=== PATIENT | female | born 1955 | race Hispanic/Latino ===

== ENCOUNTER 2018-11-16 16:49 | Inpatient (IN) | payer MEDICARE ==
[2018-11-16] MEDS ORDERED: GEODON IM PRN (17:31)
[2018-11-16] MEDS: DESYREL PO PRN (23:45)
--- NOTE | 2018-11-17 11:09 | Consultation ---
History of Present Illness - Reason for Consult Consult date: 11/17/18 medical mx Requesting physician: MITESH RIVERO - History of Present Illness The patient is a 63yo disabled female with history of Bipolar dx, Schizophrenia and multiple medical problems including Asthma, HLD and HTN presented with distressing auditory hallucinations, severely depressed mood and suicidal thoughts with plan to overdose and cut her wrist. She is now admitted t o [facility]. Hospitalist service requested to evaluated the patient for any medical needs. patient in my interview denies any n/v/SOB/headache. But c/o burning intermittent epigastric pain which she contributes to her GERD. She is tolerating diet well and has no other complaints. Past History Past Medical History: GERD, hypertension, hyperlipidemia, hypothyroidism, other (osteoarthritis, asthma) Past Surgical History: cholecystectomy, total knee replacement (x2 ), Other (left ankle and left femir surgery) Social history: , lives with family, other (has h/o 2nd hand tobacco smoking). denies: smoking, alcohol abuse, IV drug use Family history: diabetes, hypertension Medications and Allergies Allergies Allergy/AdvReac Type Severity Reaction Status Date / Time fluphenazine [From Prolixin] AdvReac Rash Verified 11/16/18 17:06 haloperidol [From Haldol] AdvReac Swelling Verified 11/16/18 17:05 Iodinated Contrast- Oral and AdvReac Rash Verified 11/16/18 17:28 IV Dye Sulfa (Sulfonamide AdvReac Rash Verified 11/16/18 17:13 Antibiotics) sulfamethoxazole AdvReac WELTS Verified 11/16/18 17:17 Home Medications Medication Instructions Recorded Confirmed Last Taken Type Aspirin 325 mg PO QDAY 11/17/18 11/17/18 Unknown History Esomeprazole Magnesium [NexIUM] 40 mg PO QDAY 11/17/18 11/17/18 Unknown History Levothyroxine [Synthroid] 225 mcg PO QAM 11/17/18 11/17/18 Unknown History Montelukast [Singulair] 10 mg PO QPM 11/17/18 11/17/18 Unknown History Nystatin 1 applic TP BID 11/17/18 11/17/18 Unknown History OLANzapine [Zyprexa] 20 mg PO HS 11/17/18 11/17/18 Unknown History Pregabalin [Lyrica] 75 mg PO BID 11/17/18 11/17/18 Unknown History Simvastatin 40 mg PO QDAY 11/17/18 11/17/18 Unknown History Sucralfate [Carafate] 1 gm PO ACHS 11/17/18 11/17/18 Unknown History rOPINIRole [Requip] 1 mg PO QHS 11/17/18 11/17/18 Unknown History Active Meds: Active Medications Trazodone HCl (Desyrel) 50 mg PO QHS PRN PRN Reason: Insomnia Last Admin: 11/16/18 23:45 Dose: 50 mg Documented by: Ziprasidone (Geodon) 20 mg IM Q12H PRN PRN Reason: Agitation Review of Systems Constitutional: fatigue, no weight loss, no weight gain Ears, nose, mouth and throat: no ear pain, no decreased hearing, no nasal congestion, no sinus pressure, no bleeding gums, no dysphagia, no sore throat, no voice changes, no headache, no vertigo Breasts: no change in shape, no skin changes Cardiovascular: no chest pain, no palpitations, no lightheadedness, no shortness of breath Respiratory: no cough, no congestion, no wheezing Gastrointestinal: no abdominal pain, no nausea, no vomiting, no diarrhea Genitourinary Female: no flank pain, no urinary frequency Menstruation: postmenopausal Rectal: no pain, no bleeding Musculoskeletal: no neck pain, no low back pain Integumentary: no rash, no pruritis, no redness Neurological: no paralysis, no numbness, no tingling Psychiatric: sleep disturbances, change in appetite, hallucinations Endocrine: no cold intolerance, no heat intolerance Hematologic/Lymphatic: no easy bruising, no easy bleeding Allergic/Immunologic: no urticaria Exam - Constitutional Vitals: Temp Pulse Resp BP Pulse Ox 97.7 F 68 18 136/55 98 11/16/18 23:07 11/16/18 23:07 11/16/18 23:07 11/16/18 23:07 11/16/18 23:07 General appearance: Present: no acute distress, obese - EENT Eyes: Present: PERRL ENT: hearing intact, clear oral mucosa - Neck Neck: Present: supple, normal ROM - Respiratory Respiratory effort: normal Respiratory: bilateral: CTA - Cardiovascular Heart Sounds: Present: S1 & S2. Absent: rub, click - Extremities Extremities: pulses symmetrical, No edema Peripheral Pulses: within normal limits - Abdominal General gastrointestinal: Present: soft, non-tender, non-distended, normal bowel sounds - Integumentary Integumentary: Present: clear, warm, dry - Musculoskeletal Musculoskeletal: gait normal, strength equal bilaterally - Psychiatric Psychiatric: memory intact, cooperative, no agitated - Neurologic Neurologic: CNII-XII intact, moves all extremities Results - Labs CBC & Chem 7: 11/17/18 11:43 11/17/18 11:28 Labs: Abnormal lab results 11/16/18 Range/Units 21:54 POC Glucose 125 H (70-105) Assessment and Plan Bipolar disorder current episode depressed (Acute) Paranoid schizophrenia (Acute) - Mx per primary Chronic medical conditions: Asthma, w/o exacerbation hypothyroidism Osteoarthitis with rediculopathy HTN, stable HLD GERD Morbid obesity - cont home meds - patient appears medically stable - no acute intervention necessary - call us back any question or concern - please provide dietary and age appropriate exercise recommendation on discharge
--- NOTE | 2018-11-17 11:59 | History and Physical Report ---
GP History & Physical - History of Present Illness Date of admission: 11/16/18 Date of Examination: 11/17/18 Reason for Admission: Danger to self, Psychopathology interference, Severe anxiety/depression Chief Complaint: I am having suicidal thoughts History of Present Illness: The patient is a 63yo disabled female with history of Bipolar dx, Schizophrenia and multiple medical problems including Asthma, HLD and HTN. She presents with distressing auditory hallucinations, severely depressed mood and suicidal thoughts with plan to overdose and cut her wrist. In my interview with the patient, she reports that she has been feeling progressively more depressed in the last month and has been entertaining suicidal thoughts over the last one or so weeks. She is not able to identify any stressor but indicates that she hears voices that torment her and tell her to kill herself. She states that the voices also make derogatory comments towards her. She denies being paranoid or homicidal. She sleeps poorly at night and her appetite is fair. She reports being compliant with her medications and denies side effects. She denies abusing substances including alcohol Legal Status: Voluntary Patient Problems: Current Active Problems Bipolar disorder current episode depressed (Acute) Paranoid schizophrenia (Acute) Reaction to Hospitalization: Accepting Substance History - Substance History Drug Use: none Hx Tobacco Use: No Alcohol Use: No Past psychiatric history - Past Medical History Past Medical History: hypertension, hyperlipidemia, hypothyroidism, other (Asthma) - past Psychiatric treatment and history Psych: Bipolar, Schizophrenia - Social History Social history: lives with family (daughter, completed 10th grade ed, disabled, , no legal problems and access to guns.) Review of Systems All systems: negative Psychiatric: insomnia, suicidal ideation, hallucinations, depression Results - Results Labs/Vitals: Laboratory Last Values POC Glucose 125 (70-105) H 11/16/18 21:54 Last Vital Signs Temp 97.3 F L 11/17/18 09:31 Pulse 81 11/17/18 09:31 Resp 18 11/16/18 23:07 BP 129/64 11/17/18 09:31 Pulse Ox 99 11/17/18 09:31 Physical Examination - Constitutional Vitals: Vital Signs Temp Pulse Resp BP Pulse Ox 97.3 F L 81 18 129/64 99 11/17/18 09:31 11/17/18 09:31 11/16/18 23:07 11/17/18 09:31 11/17/18 09:31 Temperature -Last 24 Hours Temperature 97.3 F Temperature 97.7 F Temperature 97.7 F General appearance: Present: no acute distress, obese, disheveled - EENT Eyes: Present: EOM intact ENT: hearing intact, clear oral mucosa - Neck Neck: Present: supple, normal ROM - Respiratory Respiratory effort: normal Mental Status Exam - Vital signs Last Vital Signs Temp 97.3 F L 11/17/18 09:31 Pulse 81 11/17/18 09:31 Resp 18 11/16/18 23:07 BP 129/64 11/17/18 09:31 Pulse Ox 99 11/17/18 09:31 - Exam Orientation: time, place, person Mood: congruent with affect Thought Process: Intact Perceptions: command, hallucinations Speech: normal rate and pattern Concentration: focused Motor activity: lethargic Level of consciousness: alert Memory: Intact Sleep Symptoms: Insomnia Interaction: cooperative, pleasant Assessment and Plan - Psychiatric problem (1) Paranoid schizophrenia Current Visit: Yes Status: Acute (2) Bipolar disorder current episode depressed Current Visit: Yes Status: Acute plan to address problem: Patient will be admitted for inpatient psychiatric evaluation, medication adjustment and close monitoring The patient's behavior, mood, sleep and appetite will be closely monitored. Patient will be enrolled in individual and group therapeutic sessions and encouraged to attend. Patient will be provided with a safe and structured environment. Patient's physical health needs will be addressed by the Hospitalist. Social Assessment will be completed and the Cna Per Diem will work with pat ient and family to ensure a suitable and safe disposition Medication adjustment will be made as clinically indicated The patient agreed on the treatment plan, understood the risk, benefit, alternative treatment, potential consequence of no treatment, and gave informed consent. Physician Certification - Certification Statement Physician Certification Statement: This is an acknowledgement statement that MAYTE STAPLES is a 63 year old F who requires inpatient psychiatric admission for treatment which could reasonably be expected to improve the patient's condition for depression and psychosis Estimated period of time patient will need to remain in the hospital: 7 days Plan for post-hospital care: Outpatient care
[2018-11-17 12:03] LABS: Basophils % (Auto) 0.3 % (0.0-1.8); Eosinophils # (Auto) 0.3 K/mm3 (0.0-0.4); Eosinophils % (Auto) 4.4 % (0.0-4.3); Hematocrit 37.7 % (30.3-42.9); Hemoglobin 12.2 gm/dl (10.1-14.3); Lymphocytes # (Auto) 1.6 K/mm3 (1.2-5.4); Mean Corpuscular HGB Conc 32 % (30-34); Mean Corpuscular Volume 83 fl (79-97); Monocytes # (Auto) 0.9 K/mm3 (0.0-0.8); Monocytes % (Auto) 13.1 % (0.0-7.3); Platelet Count 235 K/mm3 (140-440); Red Blood Count 4.54 M/mm3 (3.65-5.03); Red Cell Distribution Width 17.5 % (13.2-15.2)
[2018-11-17 12:04] LABS: Alanine Aminotransferase 5 units/L (7-56); Albumin 3.7 g/dL (3.9-5); BUN/Creatinine Ratio 20; Blood Urea Nitrogen 12 mg/dL (7-17); Calcium 8.6 mg/dL (8.4-10.2); Hemolysis Index 3; LDL Cholesterol,Direct 45 mg/dL (50-130)
[2018-11-17 12:26] LABS: Chol/HDL Ratio 2.43 %; HDL Cholesterol 44 mg/dL (40-59)
[2018-11-17] MEDS: CARAFATE PO SCH ×2 (16:25→22:19)
[2018-11-17] MEDS: SINGULAIR PO SCH (17:02)
[2018-11-17] MEDS ORDERED: NYSTATIN TP SCH (22:00)
[2018-11-17] MEDS: LYRICA PO SCH (22:19)
[2018-11-17] MEDS: CYMBALTA PO SCH (22:19)
[2018-11-17] MEDS: REQUIP PO SCH (22:19)
[2018-11-17] MEDS: PRAVACHOL PO SCH (22:20)
[2018-11-17] MEDS: MYCOSTATIN TP SCH (22:22)
[2018-11-18] MEDS: SYNTHROID PO SCH ×2 (06:32)
[2018-11-18] MEDS: CARAFATE PO SCH ×4 (08:55→21:18)
[2018-11-18] MEDS ORDERED: NON-FORMULARY (Esomeprazole Magnesium [Nexium] 40 MG) PO SCH (10:00)
[2018-11-18] MEDS ORDERED: NON-FORMULARY (Aspirin 325 MG) PO SCH (10:00)
[2018-11-18] MEDS ORDERED: NON-FORMULARY (Simvastatin 40 MG) PO SCH (10:00)
[2018-11-18] MEDS: CYMBALTA PO SCH ×2 (11:10→21:18)
[2018-11-18] MEDS: ASPIRIN PO SCH (11:10)
[2018-11-18] MEDS: PROTONIX PO SCH (11:10)
[2018-11-18] MEDS: LYRICA PO SCH ×2 (11:10→21:18)
[2018-11-18] MEDS: MYCOSTATIN TP SCH ×2 (11:10→21:18)
[2018-11-18] MEDS: SINGULAIR PO SCH (17:07)
[2018-11-18] MEDS: REQUIP PO SCH (21:18)
[2018-11-18] MEDS: PRAVACHOL PO SCH (21:18)
[2018-11-18] MEDS: DESYREL PO PRN (21:58)
[2018-11-18] MEDS: NYSTOP TP SCH (21:59)
[2018-11-19] MEDS: SYNTHROID PO SCH ×2 (06:31)
[2018-11-19] MEDS: CARAFATE PO SCH ×4 (06:32→21:18)
[2018-11-19] MEDS: NYSTOP TP SCH ×2 (09:46→21:47)
[2018-11-19] MEDS: PROTONIX PO SCH (09:47)
[2018-11-19] MEDS: CYMBALTA PO SCH ×2 (09:47→21:17)
[2018-11-19] MEDS: ASPIRIN PO SCH (09:47)
[2018-11-19] MEDS: LYRICA PO SCH ×2 (09:47→21:15)
[2018-11-19] MEDS: SINGULAIR PO SCH (18:11)
[2018-11-19] MEDS: REQUIP PO SCH (18:11)
[2018-11-19] MEDS: PRAVACHOL PO SCH (21:17)
[2018-11-19] MEDS: DESYREL PO PRN (21:46)
[2018-11-20] MEDS: SYNTHROID PO SCH ×2 (05:51→05:52)
[2018-11-20] MEDS: ASPIRIN PO SCH (09:37)
[2018-11-20] MEDS: PROTONIX PO SCH (09:38)
[2018-11-20] MEDS: CYMBALTA PO SCH ×2 (09:38→21:54)
[2018-11-20] MEDS: NYSTOP TP SCH ×2 (09:38→21:50)
[2018-11-20] MEDS: LYRICA PO SCH ×2 (09:38→21:54)
[2018-11-20] MEDS: CARAFATE PO SCH ×4 (09:40→21:54)
[2018-11-20] MEDS: PROVENTIL IH PRN (16:25)
[2018-11-20] MEDS: REQUIP PO SCH (17:34)
[2018-11-20] MEDS: SINGULAIR PO SCH (17:34)
[2018-11-20] MEDS: PRAVACHOL PO SCH (21:54)
--- NOTE | 2018-11-20 22:04 | Progress Note ---
Subjective Date of service: 11/18/18 Principal diagnosis: Bipolar depression, Parnoid Schizophrenia Subjective Comment: Patient reports feeling depressed, suicidal and she continues to experience auditory hallucinations with derogatory comments towards her. She is compliant with meds and denies side effect. Objective - Criteria for Continued Treatment Criteria for Continued Treatment: Improving Level of Functioning, Reducing Isolative Behaviors, Improving Treatment / Medication Compliance, Stablizing Level of Functioning, Improving Emotional/Socia - Mental Status Mental Status: Alert - Objective Observation Participation Level: Minimal Assessment and Plan - Patient Problems (1) Paranoid schizophrenia Current Visit: Yes Status: Acute (2) Bipolar disorder current episode depressed Current Visit: Yes Status: Acute Plan to address problem: Patient will be admitted for inpatient psychiatric evaluation, medication adjustment and close monitoring The patient's behavior, mood, sleep and appetite will be closely monitored. Patient will be enrolled in individual and group therapeutic sessions and encouraged to attend. Patient will be provided with a safe and structured environment. Patient's physical health needs will be addressed by the Hospitalist. Social Assessment will be completed and the Coal Shoveler will work with patient and family to ensure a suitable and safe disposition Medication adjustment will be made as clinically indicated. Will increase Duloxetine from 30mg qd to 30mg bid for depression The patient agreed on the treatment plan, understood the risk, benefit, alternative treatment, potential consequence of no treatment, and gave informed consent.
--- NOTE | 2018-11-20 22:09 | Progress Note ---
Subjective Date of service: 11/19/18 Principal diagnosis: Bipolar depression, Parnoid Schizophrenia Subjective Comment: Patient reports improving mood but reports that she continues to experience auditory hallucinations with derogatory comments towards her. She is compliant with meds and denies side effect. Objective - Criteria for Continued Treatment Criteria for Continued Treatment: Improving Level of Functioning, Reducing Isolative Behaviors, Improving Treatment / Medication Compliance, Stablizing Level of Functioning, Improving Emotional/Socia - Mental Status Mental Status: Alert - Objective Observation Participation Level: Full Assessment and Plan - Patient Problems (1) Paranoid schizophrenia Current Visit: Yes Status: Acute (2) Bipolar disorder current episode depressed Current Visit: Yes Status: Acute Plan to address problem: Patient will be admitted for inpatient psychiatric evaluation, medication adjustment and close monitoring The patient's behavior, mood, sleep and appetite will be closely monitored. Patient will be enrolled in individual and group therapeutic sessions and encouraged to attend. Patient will be provided with a safe and structured environment. Patient's physical health needs will be addressed by the Hospitalist. Social Assessment will be completed and the Pharmaceutical Detailer will work with patient and family to ensure a suitable and safe disposition Medication adjustment will be made as clinically indicated. Continue Olanzapine 20mg qhs and Duloxetine 30mg bid for depression The patient agreed on the treatment plan, understood the risk, benefit, alternative treatment, potential consequence of no treatment, and gave informed consent.
--- NOTE | 2018-11-20 22:11 | Progress Note ---
Subjective Date of service: 11/20/18 Principal diagnosis: Bipolar depression, Parnoid Schizophrenia Subjective Comment: Patient reports improving mood but continues to experience auditory hallucinations with derogatory comments towards her. She is compliant with meds and denies side effect. Objective - Criteria for Continued Treatment Criteria for Continued Treatment: Improving Level of Functioning, Reducing Isolative Behaviors, Improving Treatment / Medication Compliance, Stablizing Level of Functioning, Improving Emotional/Socia - Mental Status Mental Status: Alert - Objective Observation Participation Level: Full Assessment and Plan - Patient Problems (1) Paranoid schizophrenia Current Visit: Yes Status: Acute (2) Bipolar disorder current episode depressed Current Visit: Yes Status: Acute Plan to address problem: Patient will be admitted for inpatient psychiatric evaluation, medication adjustment and close monitoring The patient's behavior, mood, sleep and appetite will be closely monitored. Patient will be enrolled in individual and group therapeutic sessions and encouraged to attend. Patient will be provided with a safe and structured environment. Patient's physical health needs will be addressed by the Hospitalist. Social Assessment will be completed and the Tear Down Man will work with patient and family to ensure a suitable and safe disposition Medication adjustment will be made as clinically indicated. Continue Olanzapine 20mg qhs and Duloxetine 30mg bid for depression The patient agreed on the treatment plan, understood the risk, benefit, alternative treatment, potential consequence of no treatment, and gave informed consent.
[2018-11-21] MEDS: SYNTHROID PO SCH ×2 (05:49)
[2018-11-21] MEDS: CARAFATE PO SCH ×4 (08:16→21:18)
--- NOTE | 2018-11-21 08:44 | Progress Note ---
Subjective Date of service: 11/21/18 Principal diagnosis: Bipolar depression, Parnoid Schizophrenia Subjective Comment: Patient reports improved mood, denies SI/HI/AVH/Paranoia. She is compliant with meds and denies side effect. Will plan to discharge patient in am if she continues to do well. Objective - Criteria for Continued Treatment Criteria for Continued Treatment: Improving Level of Functioning, Stablizing Level of Functioning, Improving Emotional/Socia - Mental Status Mental Status: Alert - Objective Observation Participation Level: Full Assessment and Plan - Patient Problems (1) Paranoid schizophrenia Current Visit: Yes Status: Acute (2) Bipolar disorder current episode depressed Current Visit: Yes Status: Acute Plan to address problem: Patient will be admitted for inpatient psychiatric evaluation, medication adjustment and close monitoring The patient's behavior, mood, sleep and appetite will be closely monitored. Patient will be enrolled in individual and group therapeutic sessions and encouraged to attend. Patient will be provided with a safe and structured environment. Patient's physical health needs will be addressed by the Hospitalist. Social Assessment will be completed and the Lockstitch Tunnel Elastic Operator will work with patient and family to ensure a suitable and safe disposition Medication adjustment will be made as clinically indicated. Continue Olanzapine 20mg qhs and Duloxetine 30mg bid for depression The patient agreed on the treatment plan, understood the risk, benefit, alternative treatment, potential consequence of no treatment, and gave informed consent.
[2018-11-21] MEDS: ASPIRIN PO SCH (09:52)
[2018-11-21] MEDS: CYMBALTA PO SCH ×2 (09:52→21:19)
[2018-11-21] MEDS: NYSTOP TP SCH ×2 (09:53→21:19)
[2018-11-21] MEDS: PROTONIX PO SCH (09:53)
[2018-11-21] MEDS: LYRICA PO SCH ×2 (09:53→21:19)
[2018-11-21] MEDS: REQUIP PO SCH (17:08)
[2018-11-21] MEDS: SINGULAIR PO SCH (17:08)
[2018-11-21] MEDS: PRAVACHOL PO SCH (21:19)
[2018-11-21] MEDS: DESYREL PO PRN (21:20)
[2018-11-21] MEDS: PROVENTIL IH PRN (22:36)
[2018-11-22] MEDS: CARAFATE PO SCH ×2 (06:35→12:46)
[2018-11-22] MEDS: SYNTHROID PO SCH ×2 (06:35)
[2018-11-22] MEDS: PROVENTIL IH PRN (08:08)
[2018-11-22] MEDS: CYMBALTA PO SCH (10:14)
[2018-11-22] MEDS: LYRICA PO SCH (10:14)
[2018-11-22] MEDS: PROTONIX PO SCH (10:14)
[2018-11-22] MEDS: ASPIRIN PO SCH (10:14)
--- NOTE | 2018-11-22 12:06 | Discharge Summary ---
Providers - Providers Date of Admission: 11/16/18 17:22 Date of discharge: 11/22/18 Attending physician: MITESH RIVERO MD Primary care physician: MILK BOTTLING MACHINE OPERATOR Hospitalization Reason for admission: Auditory hallucinations, depressed mood and suicidal thoughts Condition: Good Hospital course: The patient was provided inpatient psychiatric treatment with safe and supportive environment, group therapy, individual counseling, psychiatric medication, medication adjustment, adverse effect monitor, medical evaluation, medical treatment, social service assessment, family/social support meeting, placement assessment and psycho-education. The patients mood, anxiety, thoughts, stress management skill, cognition, impulse/anger control, motivation, understanding of disease, compliance to treatment and appreciation on family/social support are improved and stabilized. At the time of discharge, the patient had no suicidal ideas, no homicidal ideas, no aggressive thoughts, no endangering behavior and no debilitating adverse effects. The patient agreed on the treatment plan, understood the risk, benefit, alternative treatment, po tential consequence of no treatment, and gave informed consent. The patient was advised to be compliant with medications, not to use drugs and not to drink alcohol. The patient understands that if suicidal ideas, homicidal ideas, or any endangering thoughts arise, the patient should immediately seek for emergent assistance including but not limited to crisis hot line and emergency room. Follow up with out-patient Psychiatrist and PCP within 14 - 21 days of discharge. Disposition: DC-01 TO HOME OR SELFCARE Allergies/Adverse Reactions: Allergies fluphenazine [From Prolixin] Adverse Reaction (Verified 11/16/18 17:06) Rash haloperidol [From Haldol] Adverse Reaction (Verified 11/16/18 17:05) Swelling TONGUE SWELLING. Iodinated Contrast- Oral and IV Dye Adverse Reaction (Verified 11/16/18 17:28) Rash Sulfa (Sulfonamide Antibiotics) Adverse Reaction (Verified 11/16/18 17:13) Rash sulfamethoxazole Adverse Reaction (Verified 11/16/18 17:17) NOLAN Vital Signs: Last Vital Signs Temp 97.6 F 11/21/18 22:00 Pulse 91 H 11/22/18 08:23 Resp 20 11/22/18 08:23 BP 148/63 11/21/18 22:00 Pulse Ox 99 11/22/18 08:07 Last Lab: Laboratory Last Values WBC 6.9 K/mm3 (4.5-11.0) 11/17/18 11:43 RBC 4.54 M/mm3 (3.65-5.03) 11/17/18 11:43 Hgb 12.2 gm/dl (10.1-14.3) 11/17/18 11:43 Hct 37.7 % (30.3-42.9) 11/17/18 11:43 MCV 83 fl (79-97) 11/17/18 11:43 MCH 27 pg (28-32) L 11/17/18 11:43 MCHC 32 % (30-34) 11/17/18 11:43 RDW 17.5 % (13.2-15.2) H 11/17/18 11:43 Plt Count 235 K/mm3 (140-440) 11/17/18 11:43 Lymph % (Auto) 23.0 % (13.4-35.0) 11/17/18 11:43 [place] % (Auto) 13.1 % (0.0-7.3) H 11/17/18 11:43 Eos % (Auto) 4.4 % (0.0-4.3) H 11/17/18 11:43 Baso % (Auto) 0.3 % (0.0-1.8) 11/17/18 11:43 Lymph # 1.6 K/mm3 (1.2-5.4) 11/17/18 11:43 [place] # 0.9 K/mm3 (0.0-0.8) H 11/17/18 11:43 Eos # 0.3 K/mm3 (0.0-0.4) 11/17/18 11:43 Baso # 0.0 K/mm3 (0.0-0.1) 11/17/18 11:43 Seg Neutrophils % 59.2 % (40.0-70.0) 11/17/18 11:43 Seg Neutrophils # 4.1 K/mm3 (1.8-7.7) 11/17/18 11:43 Sodium 142 mmol/L (137-145) 11/17/18 11:28 Potassium 4.0 mmol/L (3.6-5.0) 11/17/18 11:28 Chloride 99.9 mmol/L (98-107) 11/17/18 11:28 Carbon Dioxide 32 mmol/L (22-30) H 11/17/18 11:28 14 mmol/L 11/17/18 11:28 BUN 12 mg/dL (7-17) 11/17/18 11:28 0.6 mg/dL (0.7-1.2) L 11/17/18 11:28 Estimated GFR > 60 ml/min 11/17/18 11:28 20 % 11/17/18 11:28 Glucose 88 mg/dL (65-100) 11/17/18 11:28 POC Glucose 125 (70-105) H 11/16/18 21:54 5.1 % (4-6) 11/17/18 11:43 Calcium 8.6 mg/dL (8.4-10.2) 11/17/18 11:28 0.30 mg/dL (0.1-1.2) 11/17/18 11:28 AST 10 units/L (5-40) 11/17/18 11:28 ALT 5 units/L (7-56) L 11/17/18 11:28 82 units/L (35-129) 11/17/18 11:28 7.5 g/dL (6.3-8.2) 11/17/18 11:28 3.7 g/dL (3.9-5) L 11/17/18 11:28 1.0 % 11/17/18 11:28 Triglycerides 145 mg/dL (2-149) 11/17/18 11:28 Cholesterol 107 mg/dL (50-199) 11/17/18 11:28 45 mg/dL (50-130) L 11/17/18 11:28 44 mg/dL (40-59) 11/17/18 11:28 2.43 % 11/17/18 11:28 - Discharge Diagnoses (1) Paranoid schizophrenia Status: Acute (2) Bipolar disorder current episode depressed Status: Acute Core Measure Documentation - Palliative Care Palliative Care/ Comfort Measures: Not Applicable - Core Measures Any of the following diagnoses?: none Exam - Constitutional Vitals: Temp Pulse Resp BP Pulse Ox 97.6 F 91 H 20 148/63 99 11/21/18 22:00 11/22/18 08:23 11/22/18 08:23 11/21/18 22:00 11/22/18 08:07 General appearance: Present: no acute distress, well-nourished - EENT Eyes: Present: PERRL, EOM intact ENT: hearing intact, clear oral mucosa - Neck Neck: Present: supple, normal ROM - Respiratory Respiratory effort: normal Plan Activity: fall precautions Weight Bearing Status: Weight Bear as Tolerated Diet: regular Follow up with: PRIMARY CARE,MD [Primary Care Provider] - 7 Days Prescriptions: traZODone [Desyrel] 50 mg PO QHS PRN 30 Days #30 tablet PRN Reason: Insomnia DULoxetine [Cymbalta] 30 mg PO BID 30 Days #60 capsule
[2018-11-22 12:07] VITALS: BP 149/63
[2018-11-22] MEDS: NYSTOP TP SCH (12:46)
== END 2018-11-22 13:30 | disposition home or self-care (01) | DRG 885 ==
LOC: 3A 16:49 → UNDOADMIN 16:49 → 5A 17:22
PROVIDERS: ADMIT Psychiatry & Neurology Psychiatry; ATTEND Psychiatry & Neurology Psychiatry
DX: F20.0 Paranoid schizophrenia (principal); Z68.42 Body mass index [BMI] 45.0-49.9, adult; F31.9 Bipolar disorder, unspecified; I10 Essential (primary) hypertension; J45.909 Unspecified asthma, uncomplicated; E03.9 Hypothyroidism, unspecified; M19.90 Unspecified osteoarthritis, unspecified site; Z96.653 Presence of artificial knee joint, bilateral; E78.5 Hyperlipidemia, unspecified; E66.01 Morbid (severe) obesity due to excess calories; K21.9 Gastro-esophageal reflux disease without esophagitis; Z90.49 Acquired absence of other specified parts of digestive tract; Z82.49 Family history of ischemic heart disease and other diseases of the circulatory system; Z83.3 Family history of diabetes mellitus; Z88.2 Allergy status to sulfonamides; Z91.041 Radiographic dye allergy status; Z79.82 Long term (current) use of aspirin; Z79.899 Other long term (current) drug therapy
CPT/HCPCS: 36415; 80053; 80061; 82962; 83036; 85025; 94640; 94760; G0378; A9270-GY

== ENCOUNTER 2018-11-28 22:06 | Inpatient (IN) | payer MEDICARE ==
[~2018-11-28 22:06] MED LIST: PROVENTIL IH PRN
[2018-11-28] MEDS ORDERED: DESYREL PO PRN (22:22)
[2018-11-28] MEDS ORDERED: PROVENTIL IH PRN (22:22)
[2018-11-29] MEDS: CYMBALTA PO SCH ×2 (09:10→21:51)
[2018-11-29] MEDS: LYRICA PO SCH ×2 (09:10→21:51)
[2018-11-29] MEDS ORDERED: CYMBALTA PO SCH (10:00)
[2018-11-29] MEDS ORDERED: LYRICA PO SCH (10:00)
[2018-11-29 10:19] LABS: Basophils % (Auto) 0.3 % (0.0-1.8); Eosinophils # (Auto) 0.3 K/mm3 (0.0-0.4); Eosinophils % (Auto) 4.2 % (0.0-4.3); Hematocrit 36.1 % (30.3-42.9); Hemoglobin 11.6 gm/dl (10.1-14.3); Lymphocytes # (Auto) 1.3 K/mm3 (1.2-5.4); Lymphocytes % (Auto) 15.3 % (13.4-35.0); Mean Corpuscular HGB Conc 32 % (30-34); Mean Corpuscular Volume 83 fl (79-97); Monocytes # (Auto) 0.9 K/mm3 (0.0-0.8); Monocytes % (Auto) 10.4 % (0.0-7.3); Platelet Count 286 K/mm3 (140-440); Red Blood Count 4.36 M/mm3 (3.65-5.03); Red Cell Distribution Width 17.4 % (13.2-15.2)
--- NOTE | 2018-11-29 10:19 | History and Physical Report ---
GP History & Physical - History of Present Illness Date of admission: 11/28/18 Date of Examination: 11/29/18 Reason for Admission: Danger to self, Impaired reality testing, Psychopathology interference, Unable to care for self Chief Complaint: Hearing voices, depressed and suicidal History of Present Illness: The patient is a 63yo disabled female with history of Bipolar dx, Schizophrenia and multiple medical problems including Asthma, HLD and HTN. She presents with distressing auditory hallucinations, severely depressed mood and suicidal thoughts with plan to overdose and cut her wrist. Patient is well known to this service having just been discharged one week ago In my interview with the patient, she reports that the voices are bothersome, tells her to kill herself. She reports that she has been entertaining suicidal thoughts over the last few days. She has been thinking of taking an overdose of her medications and cutting her wrist. She is not able to identify any stressor but indicates that she hears voices that torment her and tell her to kill herself. She states that the voices also make derogatory comments towards her. She denies being paranoid or homicidal. She sleeps well at night and her appetite is fair. She reports being compliant with her medications and denies side effects. She denies abusing substances including alcohol Legal Status: Voluntary Reaction to Hospitalization: Accepting Substance History - Substance History Drug Use: none Hx Tobacco Use: No Alcohol Use: No Past psychiatric history - Past Medical History Past Medical History: hypertension, hyperlipidemia, hypothyroidism - past Psychiatric treatment and history Psych: Bipolar, Psychosis, Schizophrenia - Social History Social history: lives with family ( (daughter, completed 10th grade ed, disabled, , no legal problems and access to guns.)) Review of Systems All systems: negative Psychiatric: suicidal ideation, hallucinations, depression Results - Results Labs/Vitals: Laboratory Last Values POC Glucose 114 (70-105) H 11/29/18 02:48 5.1 % (4-6) 11/29/18 09:20 Last Vital Signs Temp 98.0 F 11/29/18 01:50 Pulse 69 11/29/18 01:50 Resp 18 11/29/18 02:30 BP 115/67 11/29/18 01:50 Pulse Ox 100 11/29/18 08:46 Physical Examination - Constitutional Vitals: Vital Signs Temp Pulse Resp BP Pulse Ox 98.0 F 69 18 115/67 100 11/29/18 01:50 11/29/18 01:50 11/29/18 02:30 11/29/18 01:50 11/29/18 08:46 Temperature -Last 24 Hours Temperature 98.0 F General appearance: Present: no acute distress, obese, disheveled - EENT Eyes: Present: PERRL, EOM intact ENT: hearing intact, clear oral mucosa - Neck Neck: Present: supple, normal ROM - Respiratory Respiratory effort: normal Mental Status Exam - Vital signs Last Vital Signs Temp 98.0 F 11/29/18 01:50 Pulse 69 11/29/18 01:50 Resp 18 11/29/18 02:30 BP 115/67 11/29/18 01:50 Pulse Ox 100 11/29/18 08:46 - Exam Orientation: time, place, person Affect: depressed Mood: congruent with affect Thought Process: Intact Perceptions: auditory, hallucinations Speech: normal rate and pattern Concentration: distractible Motor activity: lethargic Level of consciousness: alert Memory: Intact Sleep Symptoms: None Appetite: decreased Interaction: apathetic, cooperative Assessment and Plan - Psychiatric problem (1) Bipolar disorder current episode depressed Current Visit: No Status: Acute plan to address problem: Patient will be admitted for inpatient psychiatric evaluation, medication adjustment and close monitoring The patient's behavior, mood, sleep and appetite will be closely monitored. Patient will be enrolled in individual and group therapeutic sessions and encouraged to attend. Patient will be provided with a safe and structured environment. Patient's physical health needs will be addressed by the Hospitalist. Social Assessment will be completed and the Pourer Metal will work with patient and family to ensure a suitable and safe disposition Medication adjustment will be made as clinically indicated The patient agreed on the treatment plan, understood the risk, benefit, alternative treatment, potential consequence of no treatment, and gave informed consent. (2) Paranoid schizophrenia Current Visit: No Status: Acute plan to address problem: Patient will be admitted for inpatient psychiatric evaluation, medication adjustment and close monitoring The patient's behavior, mood, sleep and appetite will be closely monitored. Patient will be enrolled in individual and group therapeutic sessions and encouraged to attend. Patient will be provided with a safe and structured environment. Patient's physical health needs will be addressed by the Hospitalist. Social Assessment will be completed and the Pourer Metal will work with patient and family to ensure a suitable and safe disposition Medication adjustment will be made as clinically indicated The patient agreed on the treatment plan, understood the risk, benefit, alternative treatment, potential consequence of no treatment, and gave informed consent. Physician Certification - Certification Statement Physician Certification Statement: This is an acknowledgement statement that MAYTE STAPLES is a 63 year old F who requires inpatient psychiatric admission for treatment which could reasonably be expected to improve the patient's condition for Bipolar disorder and Schizophrenia Estimated period of time patient will need to remain in the hospital: 7 days Plan for post-hospital care: Out-patient care
[2018-11-29 10:23] LABS: Albumin 3.4 g/dL (3.9-5); BUN/Creatinine Ratio 15; Blood Urea Nitrogen 9 mg/dL (7-17); Calcium 8.9 mg/dL (8.4-10.2); Chol/HDL Ratio 2.25 %; HDL Cholesterol 47 mg/dL (40-59); Hemolysis Index 2; LDL Cholesterol,Direct 44 mg/dL (50-130)
[2018-11-29 10:24] LABS: Alanine Aminotransferase < 5 units/L (7-56)
--- NOTE | 2018-11-29 16:37 | Progress Note ---
Assessment and Plan Assessment and plan: SEE FULL CONSULT NOTE FROM HOSPITAL ADMISSION ON 11/17/18 The patient is a 63yo disabled female with history of Bipolar dx, Schizophrenia and multiple medical problems including Asthma, HLD and HTN presented with distressing auditory hallucinations, severely depressed mood and suicidal thoughts with plan to overdose and cut her wrist. She is now admitted to geripsych unit. Hospitalist service requested to evaluated the patient for any medical needs. The patient returned to the hospital with complaints of Audiotory hallucination and voices telling her to Assess. Echo into full documentation of the patient she's been thinking of ways of using overdose OF her wrist to kill herself. She feels that the voices derogatory towards her. She reports compliance with all her other medications since discharge. She specifically asked for her thyroid medication. Patient in my interview denies any n/v/SOB/headache. But c/o burning intermittent epigastric pain which she contributes to her GERD. She is tolerating diet well and has no other complaints. Bipolar disorder current episode depressed (Acute) Paranoid schizophrenia (Acute) Chronic medical conditions: Asthma, w/o exacerbation Hypothyroidism Osteoarthitis with radiculopathy HTN, stable HLD GERD Morbid obesity Plan: - cont home meds - Restart Thyroid meds and also pulmonary medications - patient appears medically stable - call us back any question or concern - please provide dietary and age appropriate exercise recommendation on discharge - Accu check AC/HS History Interval history: Patient seen and examined, The patient was recently discharged within the last 2 weeks but returned with complaints of depression while at home. Hospitalist Physical - Physical exam Narrative exam: VITAL SIGNS: Reviewed. GENERAL: The patient appeared well nourished and normally developed, Morbidly Obese. Vital signs as documented. HEAD: No signs of head trauma. EYES: Pupils are equal. Extraocular motions intact. EARS: Hearing grossly intact. MOUTH: Oropharynx is normal. NECK: No adenopathy, no JVD. CHEST: Chest with clear breath sounds bilaterally. No wheezes, rales, or rhonchi. CARDIAC: Regular rate and rhythm. S1 and S2, without murmurs, gallops, or rubs. VASCULAR: No Edema. Peripheral pulses normal and equal in all extremities. ABDOMEN: Soft, non tender and non distended. No rebound or guarding, and no masses palpated. Bowel Sounds normal. MUSCULOSKELETAL: Good range of motion of all major joints. Extremities without clubbing, cyanosis or edema. NEUROLOGIC EXAM: Alert and oriented x 3 No focal sensory or strength deficits. Speech normal. Follows commands. PSYCHIATRIC: Mood normal. SKIN: No rash or lesions. - Constitutional Vitals: Temp Pulse Resp BP Pulse Ox 97.9 F 69 18 133/57 99 11/29/18 12:57 11/29/18 12:57 11/29/18 12:57 11/29/18 12:57 11/29/18 12:57 Results - Labs CBC & Chem 7: 11/29/18 09:20 11/29/18 09:20 Labs: Laboratory Last Values WBC 8.3 K/mm3 (4.5-11.0) 11/29/18 09:20 RBC 4.36 M/mm3 (3.65-5.03) 11/29/18 09:20 Hgb 11.6 gm/dl (10.1-14.3) 11/29/18 09:20 Hct 36.1 % (30.3-42.9) 11/29/18 09:20 MCV 83 fl (79-97) 11/29/18 09:20 MCH 27 pg (28-32) L 11/29/18 09:20 MCHC 32 % (30-34) 11/29/18 09:20 RDW 17.4 % (13.2-15.2) H 11/29/18 09:20 Plt Count 286 K/mm3 (140-440) 11/29/18 09:20 Lymph % (Auto) 15.3 % (13.4-35.0) 11/29/18 09:20 [place] % (Auto) 10.4 % (0.0-7.3) H 11/29/18 09:20 Eos % (Auto) 4.2 % (0.0-4.3) 11/29/18 09:20 Baso % (Auto) 0.3 % (0.0-1.8) 11/29/18 09:20 Lymph # 1.3 K/mm3 (1.2-5.4) 11/29/18 09:20 [place] # 0.9 K/mm3 (0.0-0.8) H 11/29/18 09:20 Eos # 0.3 K/mm3 (0.0-0.4) 11/29/18 09:20 Baso # 0.0 K/mm3 (0.0-0.1) 11/29/18 09:20 Seg Neutrophils % 69.8 % (40.0-70.0) 11/29/18 09:20 Seg Neutrophils # 5.8 K/mm3 (1.8-7.7) 11/29/18 09:20 Sodium 140 mmol/L (137-145) 11/29/18 09:20 Potassium 3.9 mmol/L (3.6-5.0) 11/29/18 09:20 Chloride 99.7 mmol/L (98-107) 11/29/18 09:20 Carbon Dioxide 31 mmol/L (22-30) H 11/29/18 09:20 13 mmol/L 11/29/18 09:20 BUN 9 mg/dL (7-17) 11/29/18 09:20 0.6 mg/dL (0.7-1.2) L 11/29/18 09:20 Estimated GFR > 60 ml/min 11/29/18 09:20 15 % 11/29/18 09:20 Glucose 97 mg/dL (65-100) 11/29/18 09:20 POC Glucose 114 (70-105) H 11/29/18 02:48 5.1 % (4-6) 11/29/18 09:20 Calcium 8.9 mg/dL (8.4-10.2) 11/29/18 09:20 0.30 mg/dL (0.1-1.2) 11/29/18 09:20 AST 8 units/L (5-40) 11/29/18 09:20 ALT < 5 units/L (7-56) L 11/29/18 09:20 83 units/L (35-129) 11/29/18 09:20 7.1 g/dL (6.3-8.2) 11/29/18 09:20 3.4 g/dL (3.9-5) L 11/29/18 09:20 0.9 % 11/29/18 09:20 Triglycerides 134 mg/dL (2-149) 11/29/18 09:20 Cholesterol 106 mg/dL (50-199) 11/29/18 09:20 44 mg/dL (50-130) L 11/29/18 09:20 47 mg/dL (40-59) 11/29/18 09:20 2.25 % 11/29/18 09:20 Active Medications - Current Medications Current Medications: Generic Name Dose Route Start Last Admin Trade Name Freq PRN Reason Stop Dose Admin Albuterol 2.5 mg 11/28/18 02:23 Proventil IH Q4H PRN Shortness Of Breath Aspirin 325 mg 11/30/18 10:00 Aspirin PO QDAY JUAN Duloxetine HCl 30 mg 11/29/18 10:00 11/29/18 09:10 Cymbalta PO 30 mg BID JUAN Administration Levothyroxine Sodium 100 mcg 11/30/18 06:00 Synthroid PO DAILY@0600 JUAN Levothyroxine Sodium 225 mcg 11/30/18 10:00 Synthroid PO QAM JUAN Miscellaneous Medication 1 applic 11/29/18 22:00 Nystatin TP BID JUAN Montelukast Sodium 10 mg 11/29/18 18:00 Singulair PO QPM JUAN Olanzapine 20 mg 11/29/18 22:00 Zyprexa PO HS JUAN Pravastatin Sodium 80 mg 11/29/18 22:00 Pravachol PO QHS JUAN Pregabalin 75 mg 11/29/18 10:00 11/29/18 09:10 Lyrica PO 75 mg BID JUAN Administration Ropinirole HCl 1 mg 11/29/18 22:00 Requip PO QHS JUAN Sucralfate 1 gm 11/29/18 16:30 Carafate PO ACHS JUAN Trazodone HCl 50 mg 11/28/18 02:23 Desyrel PO QHS PRN Insomnia
[2018-11-29] MEDS: SINGULAIR PO SCH (17:08)
[2018-11-29] MEDS: CARAFATE PO SCH ×2 (17:08→21:50)
[2018-11-29] MEDS: PRAVACHOL PO SCH (21:52)
[2018-11-29] MEDS ORDERED: NYSTATIN TP SCH (22:00)
[2018-11-29] MEDS ORDERED: REQUIP PO SCH ×2 (22:00)
[2018-11-29] MEDS: DESYREL PO PRN (22:03)
[2018-11-30] MEDS: NYSTOP TP SCH ×3 (00:24→23:06)
[2018-11-30] MEDS ORDERED: IBUPROFEN PO PRN (03:15)
[2018-11-30] MEDS: SYNTHROID PO SCH ×2 (06:13→06:14)
--- NOTE | 2018-11-30 09:46 | XRay Report ---
RIGHT KNEE, 2 VIEWS INDICATION: Chronic pain. COMPARISON: None. IMPRESSION: There is normal bone mineralization. Previous arthroplasty changes are evident in the pa tellofemoral space only which appear intact. Moderate medial compartment joint space narrowing and mi ld lateral compartment joint space narrowing are identified. No evidence for bone lesion, fracture or large osteochondral defect. No significant joint effusion is identified. The soft tissues are unrem arkable. Signer Name: Jair Rogers Jr, MD Signed: 11/30/2018 9:42 AM Workstation Name: [id number]
[2018-11-30] MEDS: CARAFATE PO SCH ×4 (09:48→21:32)
[2018-11-30] MEDS: LYRICA PO SCH ×2 (09:49→21:32)
[2018-11-30] MEDS: CYMBALTA PO SCH ×2 (09:49→21:30)
[2018-11-30] MEDS: ASPIRIN PO SCH (09:55)
[2018-11-30] MEDS ORDERED: NON-FORMULARY (Simvastatin 40 MG) PO SCH (10:00)
--- NOTE | 2018-11-30 15:29 | Progress Note ---
Subjective Date of service: 11/30/18 Principal diagnosis: Bipolar depression, Paranoid Schizophrenia Subjective Comment: Patient reports that she is hearing voices that tell her to kill herself. She endorses being suicidal but denies suicidal plans or intent. She denies HI. She is compliant with medications and denies side effects. Objective - Criteria for Continued Treatment Criteria for Continued Treatment: Improving Level of Functioning, Stablizing Level of Functioning, Improving Emotional/Socia, Decreasing Frequency of Hospitalization - Mental Status Mental Status: Alert - Objective Observation Participation Level: Moderate Assessment and Plan - Patient Problems (1) Bipolar disorder current episode depressed Current Visit: No Status: Acute Plan to address problem: Patient will be admitted for inpatient psychiatric evaluation, medication adjustment and close monitoring The patient's behavior, mood, sleep and appetite will be closely monitored. Patient will be enrolled in individual and group therapeutic sessions and encouraged to attend. Patient will be provided with a safe and structured environment. Patient's physical health needs will be addressed by the Hospitalist. Social Assessment will be completed and the Intelligence Manager will work with patient and family to ensure a suitable and safe disposition Medication adjustment will be made as clinically indicated Will increase Cymbalta from 30mg bid to 60mg bid The patient agreed on the treatment plan, understood the risk, benefit, alternative treatment, potential consequence of no treatment, and gave informed consent. (2) Paranoid schizophrenia Current Visit: No Status: Acute
--- NOTE | 2018-11-30 15:55 | Progress Note ---
Assessment and Plan Assessment and plan: SEE FULL CONSULT NOTE FROM HOSPITAL ADMISSION ON 11/17/18 The patient is a 63yo disabled female with history of Bipolar dx, Schizophrenia and multiple medical problems including Asthma, HLD and HTN presented with distressing auditory hallucinations, severely depressed mood and suicidal thoughts with plan to overdose and cut her wrist. She is now admitted to geripsych unit. Hospitalist service requested to evaluated the patient for any medical needs. The patient returned to the hospital with complaints of Audiotory hallucination and voices telling her to Assess. Echo into full documentation of the patient she's been thinking of ways of using overdose OF her wrist to kill herself. She feels that the voices derogatory towards her. She reports compliance with all her other medications since discharge. She specifically asked for her thyroid medication. Patient in my interview denies any n/v/SOB/headache. But c/o burning intermittent epigastric pain which she contributes to her GERD. She is tolerating diet well and has no other complaints. Bipolar disorder current episode depressed Fall Paranoid schizophrenia (Acute) Chronic medical conditions: Asthma, w/o exacerbation Hypothyroidism Osteoarthitis with radiculopathy HTN, stable HLD GERD Morbid obesity Plan: - Evaluated the patient and counselling provided on need to ask for help before ambulating. she ambulates with a cane - Xray knee ordered. supportive care. - cont home meds - please provide dietary and age appropriate exercise recommendation on discharge - Accu check AC/HS History Interval history: Patient seen and examined, patient noted to have cholesterol also this morning while ambulating unassisted. Hospitalist Physical - Physical exam Narrative exam: VITAL SIGNS: Reviewed. GENERAL: The patient appeared well nourished and normally developed, Morbidly Obese. Vital signs as documented. HEAD: No signs of head trauma. EYES: Pupils are equal. Extraocular motions intact. EARS: Hearing grossly intact. MOUTH: Oropharynx is normal. NECK: No adenopathy, no JVD. CHEST: Chest with clear breath sounds bilaterally. No wheezes, rales, or rhonchi. CARDIAC: Regular rate and rhythm. S1 and S2, without murmurs, gallops, or rubs. VASCULAR: No Edema. Peripheral pulses normal and equal in all extremities. ABDOMEN: Soft, non tender and non distended. No rebound or guarding, and no masses palpated. Bowel Sounds normal. MUSCULOSKELETAL: Good range of motion of all major joints. Extremities without clubbing, cyanosis or edema. NEUROLOGIC EXAM: Alert and oriented x 3 No focal sensory or strength deficits. Speech normal. Follows commands. PSYCHIATRIC: Mood normal. SKIN: No rash or lesions. - Constitutional Vitals: Temp Pulse Resp BP Pulse Ox 97.6 F 70 18 148/80 98 11/30/18 09:56 11/30/18 09:56 11/30/18 09:56 11/30/18 09:56 11/30/18 09:57 General appearance: Present: no acute distress, obese, disheveled Results - Labs CBC & Chem 7: 11/29/18 09:20 11/29/18 09:20 Labs: Laboratory Last Values WBC 8.3 K/mm3 (4.5-11.0) 11/29/18 09:20 RBC 4.36 M/mm3 (3.65-5.03) 11/29/18 09:20 Hgb 11.6 gm/dl (10.1-14.3) 11/29/18 09:20 Hct 36.1 % (30.3-42.9) 11/29/18 09:20 MCV 83 fl (79-97) 11/29/18 09:20 MCH 27 pg (28-32) L 11/29/18 09:20 MCHC 32 % (30-34) 11/29/18 09:20 RDW 17.4 % (13.2-15.2) H 11/29/18 09:20 Plt Count 286 K/mm3 (140-440) 11/29/18 09:20 Lymph % (Auto) 15.3 % (13.4-35.0) 11/29/18 09:20 [place] % (Auto) 10.4 % (0.0-7.3) H 11/29/18 09:20 Eos % (Auto) 4.2 % (0.0-4.3) 11/29/18 09:20 Baso % (Auto) 0.3 % (0.0-1.8) 11/29/18 09:20 Lymph # 1.3 K/mm3 (1.2-5.4) 11/29/18 09:20 [place] # 0.9 K/mm3 (0.0-0.8) H 11/29/18 09:20 Eos # 0.3 K/mm3 (0.0-0.4) 11/29/18 09:20 Baso # 0.0 K/mm3 (0.0-0.1) 11/29/18 09:20 Seg Neutrophils % 69.8 % (40.0-70.0) 11/29/18 09:20 Seg Neutrophils # 5.8 K/mm3 (1.8-7.7) 11/29/18 09:20 Sodium 140 mmol/L (137-145) 11/29/18 09:20 Potassium 3.9 mmol/L (3.6-5.0) 11/29/18 09:20 Chloride 99.7 mmol/L (98-107) 11/29/18 09:20 Carbon Dioxide 31 mmol/L (22-30) H 11/29/18 09:20 13 mmol/L 11/29/18 09:20 BUN 9 mg/dL (7-17) 11/29/18 09:20 0.6 mg/dL (0.7-1.2) L 11/29/18 09:20 Estimated GFR > 60 ml/min 11/29/18 09:20 15 % 11/29/18 09:20 Glucose 97 mg/dL (65-100) 11/29/18 09:20 POC Glucose 114 (70-105) H 11/29/18 02:48 5.1 % (4-6) 11/29/18 09:20 Calcium 8.9 mg/dL (8.4-10.2) 11/29/18 09:20 0.30 mg/dL (0.1-1.2) 11/29/18 09:20 AST 8 units/L (5-40) 11/29/18 09:20 ALT < 5 units/L (7-56) L 11/29/18 09:20 83 units/L (35-129) 11/29/18 09:20 7.1 g/dL (6.3-8.2) 11/29/18 09:20 3.4 g/dL (3.9-5) L 11/29/18 09:20 0.9 % 11/29/18 09:20 Triglycerides 134 mg/dL (2-149) 11/29/18 09:20 Cholesterol 106 mg/dL (50-199) 11/29/18 09:20 44 mg/dL (50-130) L 11/29/18 09:20 47 mg/dL (40-59) 11/29/18 09:20 2.25 % 11/29/18 09:20 Active Medications - Current Medications Current Medications: Generic Name Dose Route Start Last Admin Trade Name Freq PRN Reason Stop Dose Admin Albuterol 2.5 mg 11/28/18 02:23 Proventil IH Q4H PRN Shortness Of Breath Aspirin 325 mg 11/30/18 10:00 11/30/18 09:55 Aspirin PO 325 mg QDAY JUAN Administration Duloxetine HCl 60 mg 11/30/18 22:00 Cymbalta PO BID JUAN Duloxetine HCl 30 mg 11/30/18 16:00 11/30/18 15:42 Cymbalta PO 11/30/18 16:01 30 mg ONCE ONE Administration Ibuprofen 600 mg 11/30/18 03:15 11/30/18 03:42 Ibuprofen PO 600 mg Q6H PRN Administration Pain, Mild (1-3) Levothyroxine Sodium 100 mcg 11/30/18 06:00 11/30/18 06:14 Synthroid PO 100 mcg DAILY@0600 JUAN Administration Levothyroxine Sodium 125 mcg 11/30/18 06:00 11/30/18 06:13 Synthroid PO 125 mcg DAILY@0600 JUAN Administration Montelukast Sodium 10 mg 11/29/18 18:00 11/29/18 17:08 Singulair PO 10 mg QPM JUAN Administration Nystatin 1 applic 11/29/18 22:00 11/30/18 09:51 Nystop TP 1 applic BID JUAN Administration Olanzapine 20 mg 11/29/18 22:00 11/29/18 21:52 Zyprexa PO 20 mg HS JUAN Administration Pravastatin Sodium 80 mg 11/29/18 22:00 11/29/18 21:52 Pravachol PO 80 mg QHS JUAN Administration Pregabalin 75 mg 11/29/18 10:00 11/30/18 09:49 Lyrica PO 75 mg BID JUAN Administration Ropinirole HCl 1 mg 11/30/18 18:00 Requip PO QDAY@1800 JUAN Sucralfate 1 gm 11/29/18 16:30 11/30/18 13:01 Carafate PO 1 gm ACHS JUAN Administration Trazodone HCl 50 mg 11/28/18 02:23 11/29/18 22:03 Desyrel PO 50 mg QHS PRN Administration Insomnia
[2018-11-30] MEDS ORDERED: CYMBALTA PO ONE (16:00)
[2018-11-30] MEDS: SINGULAIR PO SCH (18:10)
[2018-11-30] MEDS: REQUIP PO SCH (18:11)
[2018-11-30] MEDS: PRAVACHOL PO SCH (21:30)
[2018-12-01] MEDS: SYNTHROID PO SCH ×2 (06:25)
[2018-12-01] MEDS: LYRICA PO SCH ×2 (09:16→21:45)
[2018-12-01] MEDS: CARAFATE PO SCH ×4 (09:17→21:45)
[2018-12-01] MEDS: ASPIRIN PO SCH (09:17)
[2018-12-01] MEDS: CYMBALTA PO SCH ×2 (09:17→21:46)
[2018-12-01] MEDS: NYSTOP TP SCH ×2 (09:19→21:46)
[2018-12-01] MEDS: SINGULAIR PO SCH (17:03)
[2018-12-01] MEDS: REQUIP PO SCH (17:04)
[2018-12-01] MEDS: PRAVACHOL PO SCH (21:45)
--- NOTE | 2018-12-01 22:13 | Progress Note ---
Subjective Date of service: 12/01/18 Principal diagnosis: Bipolar depression, Paranoid Schizophrenia Subjective Comment: Patient reports that she is hearing voices that tell her to kill herself. She endorses being suicidal but denies suicidal plans or intent. She denies HI. She is compliant with medications and denies side effects. Objective - Criteria for Continued Treatment Criteria for Continued Treatment: Improving Level of Functioning, Reducing Isolative Behaviors, Stablizing Level of Functioning, Improving Emotional/Socia - Mental Status Mental Status: Alert - Objective Observation Participation Level: Moderate Assessment and Plan - Patient Problems (1) Bipolar disorder current episode depressed Current Visit: No Status: Acute Plan to address problem: Patient will be admitted for inpatient psychiatric evaluation, medication adjustment and close monitoring The patient's behavior, mood, sleep and appetite will be closely monitored. Patient will be enrolled in individual and group therapeutic sessions and encouraged to attend. Patient will be provided with a safe and structured environment. Patient's physical health needs will be addressed by the Hospitalist. Social Assessment will be completed and the Boiler/Chiller Technician will work with patient and family to ensure a suitable and safe disposition Medication adjustment will be made as clinically indicated Will continue Cymbalta 60mg bid (increased on 04/02) The patient agreed on the treatment plan, understood the risk, benefit, alternative treatment, potential consequence of no treatment, and gave informed consent. (2) Paranoid schizophrenia Current Visit: No Status: Acute
[2018-12-02] MEDS: SYNTHROID PO SCH ×2 (06:13→06:14)
[2018-12-02] MEDS: CYMBALTA PO SCH ×2 (11:56→21:45)
[2018-12-02] MEDS: CARAFATE PO SCH ×4 (11:58→21:45)
[2018-12-02] MEDS: LYRICA PO SCH ×2 (11:58→21:46)
[2018-12-02] MEDS: ASPIRIN PO SCH (11:59)
[2018-12-02] MEDS: NYSTOP TP SCH ×2 (15:27→21:46)
--- NOTE | 2018-12-02 17:10 | Progress Note ---
Subjective Date of service: 12/02/18 Principal diagnosis: Bipolar depression, Paranoid Schizophrenia Subjective Comment: Patient reports feeling better today. She denies SI/HI/AVH. She is compliant with medications and denies side effects. Patient states that she was taking Lasix at home and requests for it to be re-started. Objective - Criteria for Continued Treatment Criteria for Continued Treatment: Improving Level of Functioning, Stablizing Level of Functioning, Improving Emotional/Socia, Decreasing Frequency of Hospitalization - Mental Status Mental Status: Alert - Objective Observation Participation Level: Full Assessment and Plan - Patient Problems (1) Bipolar disorder current episode depressed Current Visit: No Status: Acute Plan to address problem: Patient will be admitted for inpatient psychiatric evaluation, medication adjustment and close monitoring The patient's behavior, mood, sleep and appetite will be closely monitored. Patient will be enrolled in individual and group therapeutic sessions and encouraged to attend. Patient will be provided with a safe and structured environment. Patient's physical health needs will be addressed by the Hospitalist. Social Assessment will be completed and the Saddle Lining Stitcher will work with patient and family to ensure a suitable and safe disposition Medication adjustment will be made as clinically indicated Will continue Cymbalta 60mg bid (increased on 04/02) Re-start Lasix per patient's request. The patient agreed on the treatment plan, understood the risk, benefit, alternative treatment, potential consequence of no treatment, and gave informed consent. (2) Paranoid schizophrenia Current Visit: No Status: Acute
[2018-12-02] MEDS: LASIX PO SCH (18:15)
[2018-12-02] MEDS: REQUIP PO SCH (18:16)
[2018-12-02] MEDS: SINGULAIR PO SCH (18:16)
[2018-12-02] MEDS: PRAVACHOL PO SCH (21:46)
[2018-12-02] MEDS: DESYREL PO PRN (21:46)
[2018-12-03] MEDS: SYNTHROID PO SCH ×2 (05:55)
[2018-12-03] MEDS: CARAFATE PO SCH ×4 (06:31→21:15)
[2018-12-03] MEDS: LYRICA PO SCH ×2 (10:39→21:15)
[2018-12-03] MEDS: LASIX PO SCH (10:39)
[2018-12-03] MEDS: CYMBALTA PO SCH ×2 (10:39→21:14)
[2018-12-03] MEDS: NYSTOP TP SCH ×2 (10:40→21:13)
[2018-12-03] MEDS: TOPROL XL PO SCH (10:54)
[2018-12-03] MEDS: ASPIRIN PO SCH (11:00)
[2018-12-03] MEDS: REQUIP PO SCH (19:12)
[2018-12-03] MEDS: SINGULAIR PO SCH (19:12)
[2018-12-03] MEDS: PRAVACHOL PO SCH (21:15)
[2018-12-03] MEDS: DESYREL PO PRN (21:23)
--- NOTE | 2018-12-03 21:29 | Progress Note ---
Subjective Date of service: 12/03/18 Principal diagnosis: Bipolar depression, Paranoid Schizophrenia Subjective Comment: Patient reports feeling better today. She denies SI/HI/AVH. She is compliant with medications and denies side effects. Objective - Criteria for Continued Treatment Criteria for Continued Treatment: Improving Level of Functioning, Stablizing Level of Functioning, Improving Emotional/Socia, Decreasing Frequency of Hospitalization - Mental Status Mental Status: Alert - Objective Observation Participation Level: Full Assessment and Plan - Patient Problems (1) Bipolar disorder current episode depressed Current Visit: No Status: Acute Plan to address problem: Patient will be admitted for inpatient psychiatric evaluation, medication adjustment and close monitoring The patient's behavior, mood, sleep and appetite will be closely monitored. Patient will be enrolled in individual and group therapeutic sessions and encouraged to attend. Patient will be provided with a safe and structured environment. Patient's physical health needs will be addressed by the Hospitalist. Social Assessment will be completed and the Event Services Manager will work with patient and family to ensure a suitable and safe disposition Medication adjustment will be made as clinically indicated Will continue Cymbalta 60mg bid (increased on 04/02) The patient agreed on the treatment plan, understood the risk, benefit, alternative treatment, potential consequence of no treatment, and gave informed consent. (2) Paranoid schizophrenia Current Visit: No Status: Acute
[2018-12-04] MEDS: CARAFATE PO SCH ×4 (06:30→21:30)
[2018-12-04] MEDS: SYNTHROID PO SCH ×2 (06:31)
--- NOTE | 2018-12-04 10:17 | Progress Note ---
Subjective Date of service: 12/04/18 Principal diagnosis: Bipolar depression, Paranoid Schizophrenia Subjective Comment: Patient reports feeling better today. She denies SI/HI/AVH. She is compliant with medications and denies side effects. Objective - Criteria for Continued Treatment Criteria for Continued Treatment: Stablizing Level of Functioning - Mental Status Mental Status: Alert - Objective Observation Participation Level: Full Assessment and Plan - Patient Problems (1) Bipolar disorder current episode depressed Status: Acute Plan to address problem: Patient will be admitted for inpatient psychiatric evaluation, medication adjust ment and close monitoring The patient's behavior, mood, sleep and appetite will be closely monitored. Patient will be enrolled in individual and group therapeutic sessions and encouraged to attend. Patient will be provided with a safe and structured environment. Patient's physical health needs will be addressed by the Hospitalist. Social Assessment will be completed and the Investor Relations Coordinator will work with patient and family to ensure a suitable and safe disposition Medication adjustment will be made as clinically indicated Will continue Cymbalta 60mg bid (increased on 04/02) Discharge in am tomorrow. The patient agreed on the treatment plan, understood the risk, benefit, alternative treatment, potential consequence of no treatment, and gave informed consent. (2) Paranoid schizophrenia Status: Acute
[2018-12-04] MEDS: CYMBALTA PO SCH ×2 (10:53→21:30)
[2018-12-04] MEDS: ASPIRIN PO SCH (10:53)
[2018-12-04] MEDS: LASIX PO SCH (10:54)
[2018-12-04] MEDS: LYRICA PO SCH ×2 (10:55→21:29)
[2018-12-04] MEDS: TOPROL XL PO SCH (10:56)
[2018-12-04] MEDS: NYSTOP TP SCH ×2 (10:57→23:40)
[2018-12-04] MEDS: REQUIP PO SCH (17:09)
[2018-12-04] MEDS: SINGULAIR PO SCH (17:09)
[2018-12-04] MEDS: DESYREL PO PRN (21:29)
[2018-12-04] MEDS: PRAVACHOL PO SCH (23:44)
[2018-12-05] MEDS: CARAFATE PO SCH ×2 (06:56→11:17)
[2018-12-05] MEDS: SYNTHROID PO SCH ×2 (06:56)
[2018-12-05] MEDS: NYSTOP TP SCH (11:16)
[2018-12-05] MEDS: ASPIRIN PO SCH (11:17)
[2018-12-05] MEDS: CYMBALTA PO SCH (11:17)
[2018-12-05] MEDS: LASIX PO SCH (11:17)
[2018-12-05] MEDS: LYRICA PO SCH (11:18)
[2018-12-05] MEDS: TOPROL XL PO SCH (11:20)
[2018-12-05 11:21] VITALS: BP 136/52
--- NOTE | 2018-12-05 21:08 | Discharge Summary ---
Providers - Providers Date of Admission: 11/29/18 02:22 Date of discharge: 12/05/18 Attending physician: MITESH RIVERO MD 11/30/18 09:44 Consult to Physician [CONS] Routine Comment: Consulting Provider: GLYNN CHOI Physician Instructions: Reason For Exam: MEDICAL MANAGEMENT H&P Primary care physician: GLASS ENGRAVER Hospitalization Reason for admission: auditory hallucinations, severely depressed mood and suicidal thoughts Condition: Good Hospital course: The patient was provided inpatient psychiatric treatment with safe and supportive environment, group therapy, individual counseling, psychiatric medication, medication adjustment, adverse effect monitor, medical evaluation, medical treatment, social service assessment, family/social support meeting, placement assessment and psycho-education. The patients mood, anxiety, thoughts, stress management skill, cognition, impulse/anger control, motivation, understanding of disease, compliance to treatment and appreciation on family/social support are improved and stabilized. At the time of discharge, the patient had no suicidal ideas, no homicidal ideas, no aggressive thoughts, no endangering behavior and no debilitating adverse effects. The patient agreed on the treatment plan, understood the risk, benefit, alternative treatment, potential consequence of no treatment, and gave informed consent. The patient was advised to be compliant with medications, not to use drugs and not to drink alcohol. The patient understands that if suicidal ideas, homicidal ideas, or any endangering thoughts arise, the patient should immediately seek for emergent assistance including but not limited to crisis hot line and emergency room. Follow up with out-patient Psychiatrist and PCP within 14 - 21 days of discharge. Disposition: - TO HOME OR SELFCARE Allergies/Adverse Reactions: Allergies fluphenazine [From Prolixin] Adverse Reaction (Verified 11/16/18 17:06) Rash haloperidol [From Haldol] Adverse Reaction (Verified 11/16/18 17:05) Swelling TONGUE SWELLING. Iodinated Contrast- Oral and IV Dye Adverse Reaction (Verified 11/16/18 17:28) Rash Sulfa (Sulfonamide Antibiotics) Adverse Reaction (Verified 11/16/18 17:13) Rash sulfamethoxazole Adverse Reaction (Verified 11/16/18 17:17) [place] Vital Signs: Last Vital Signs Temp 97.5 F L 12/04/18 08:01 Pulse 69 12/05/18 11:20 Resp 18 12/03/18 19:54 BP 136/52 12/05/18 11:20 Pulse Ox 97 12/04/18 08:01 Last Lab: Laboratory Last Values WBC 8.3 K/mm3 (4.5-11.0) 11/29/18 09:20 RBC 4.36 M/mm3 (3.65-5.03) 11/29/18 09:20 Hgb 11.6 gm/dl (10.1-14.3) 11/29/18 09:20 Hct 36.1 % (30.3-42.9) 11/29/18 09:20 MCV 83 fl (79-97) 11/29/18 09:20 MCH 27 pg (28-32) L 11/29/18 09:20 MCHC 32 % (30-34) 11/29/18 09:20 RDW 17.4 % (13.2-15.2) H 11/29/18 09:20 Plt Count 286 K/mm3 (140-440) 11/29/18 09:20 Lymph % (Auto) 15.3 % (13.4-35.0) 11/29/18 09:20 [place] % (Auto) 10.4 % (0.0-7.3) H 11/29/18 09:20 Eos % (Auto) 4.2 % (0.0-4.3) 11/29/18 09:20 Baso % (Auto) 0.3 % (0.0-1.8) 11/29/18 09:20 Lymph # 1.3 K/mm3 (1.2-5.4) 11/29/18 09:20 [place] # 0.9 K/mm3 (0.0-0.8) H 11/29/18 09:20 Eos # 0.3 K/mm3 (0.0-0.4) 11/29/18 09:20 Baso # 0.0 K/mm3 (0.0-0.1) 11/29/18 09:20 Seg Neutrophils % 69.8 % (40.0-70.0) 11/29/18 09:20 Seg Neutrophils # 5.8 K/mm3 (1.8-7.7) 11/29/18 09:20 Sodium 140 mmol/L (137-145) 11/29/18 09:20 Potassium 3.9 mmol/L (3.6-5.0) 11/29/18 09:20 Chloride 99.7 mmol/L (98-107) 11/29/18 09:20 Carbon Dioxide 31 mmol/L (22-30) H 11/29/18 09:20 13 mmol/L 11/29/18 09:20 BUN 9 mg/dL (7-17) 11/29/18 09:20 0.6 mg/dL (0.7-1.2) L 11/29/18 09:20 Estimated GFR > 60 ml/min 11/29/18 09:20 15 % 11/29/18 09:20 Glucose 97 mg/dL (65-100) 11/29/18 09:20 POC Glucose 114 (70-105) H 11/29/18 02:48 5.1 % (4-6) 11/29/18 09:20 Calcium 8.9 mg/dL (8.4-10.2) 11/29/18 09:20 0.30 mg/dL (0.1-1.2) 11/29/18 09:20 AST 8 units/L (5-40) 11/29/18 09:20 ALT < 5 units/L (7-56) L 11/29/18 09:20 83 units/L (35-129) 11/29/18 09:20 7.1 g/dL (6.3-8.2) 11/29/18 09:20 3.4 g/dL (3.9-5) L 11/29/18 09:20 0.9 % 11/29/18 09:20 Triglycerides 134 mg/dL (2-149) 11/29/18 09:20 Cholesterol 106 mg/dL (50-199) 11/29/18 09:20 44 mg/dL (50-130) L 11/29/18 09:20 47 mg/dL (40-59) 11/29/18 09:20 2.25 % 11/29/18 09:20 - Discharge Diagnoses (1) Bipolar disorder current episode depressed Status: Acute (2) Paranoid schizophrenia Status: Acute Core Measure Documentation - Palliative Care Palliative Care/ Comfort Measures: Not Applicable - Core Measures Any of the following diagnoses?: none Exam - Constitutional Vitals: Temp Pulse Resp BP Pulse Ox 97.5 F L 69 18 136/52 97 12/04/18 08:01 12/05/18 11:20 12/03/18 19:54 12/05/18 11:20 12/04/18 08:01 General appearance: Present: no acute distress, obese - EENT Eyes: Present: PERRL, EOM intact ENT: hearing intact, clear oral mucosa - Neck Neck: Present: supple, normal ROM - Respiratory Respiratory effort: normal Plan Activity: fall precautions Weight Bearing Status: Weight Bear as Tolerated Follow up with: PRIMARY CARE,MD [Primary Care Provider] - 7 Days Prescriptions: traZODone [Desyrel] 50 mg PO QHS PRN 30 Days #30 tablet PRN Reason: Insomnia rOPINIRole [Requip] 1 mg PO QHS #30 tablet Aspirin 325 mg PO QDAY #30 tablet Sucralfate [Carafate] 1 gm PO ACHS #30 tablet DULoxetine [Cymbalta] 60 mg PO BID #60 capsule Furosemide [Lasix TAB] 40 mg PO QDAY #60 tablet Pregabalin [Lyrica] 75 mg PO BID #30 capsule Metoprolol Xl [Metoprolol SUCCINATE ER TAB] 25 mg PO QDAY #30 tablet Esomeprazole Magnesium [NexIUM] 40 mg PO QDAY #30 capsule. Nystatin 1 applic TP BID #1 ALBUTEROL NEB's [Proventil 0.083% NEBS] 2.5 mg IH Q4H PRN #30 nebu PRN Reason: Shortness Of Breath Simvastatin 40 mg PO QDAY #30 Montelukast [Singulair] 10 mg PO QPM #30 tablet Levothyroxine [Synthroid] 100 mcg PO DAILY@0600 #30 tablet Levothyroxine [Synthroid] 225 mcg PO QAM #30 tablet OLANzapine [Zyprexa] 20 mg PO HS #30 tablet
== END 2018-12-05 14:30 | disposition home or self-care (01) | DRG 885 ==
LOC: 3A 22:06 → UNDOADMIN 22:06 → 5A 11-29 02:22
PROVIDERS: ADMIT Psychiatry & Neurology Psychiatry; ATTEND Psychiatry & Neurology Psychiatry
DX: F31.4 Bipolar disorder, current episode depressed, severe, without psychotic features (principal); Z68.42 Body mass index [BMI] 45.0-49.9, adult; F20.0 Paranoid schizophrenia; J45.909 Unspecified asthma, uncomplicated; E78.5 Hyperlipidemia, unspecified; I10 Essential (primary) hypertension; E03.9 Hypothyroidism, unspecified; K21.9 Gastro-esophageal reflux disease without esophagitis; E66.01 Morbid (severe) obesity due to excess calories; F31.9 Bipolar disorder, unspecified; Z88.2 Allergy status to sulfonamides; Z88.8 Allergy status to other drugs, medicaments and biological substances; Z91.041 Radiographic dye allergy status
CPT/HCPCS: 36415; 80053; 80061; 82962; 83036; 85025; 94760; G0378; A9270-GY

== ENCOUNTER 2021-12-30 13:48 | Inpatient (IN) | payer MEDICARE ==
[2021-12-30] MEDS: traZODone 50 MG TAB PO SCH (21:46)
--- NOTE | 2021-12-31 07:37 | History and Physical Report ---
GP History & Physical - History of Present Illness Date of admission: 12/30/21 Date of Examination: 12/31/21 Reason for Admission: Danger to self, Danger to others, Failure of Outpatient Treatment Chief Complaint: suicidal ideation History of Present Illness: The patient is a 66 year old female with history of schizophrenia who was admitted for stabilization. The reports ongoing depression and suicidal ideation x 3 years. She is unable to state trigger but reports that " it comes and goes different times of the year." She continues be suicidal without a plan and also reports having intermittent VH " saw my last night." She reports that she has an appointment with her psychiatrist Dr. Mccullough on the 01/19. PAST PSYCHIATRIC HISTORY: Diagnoses: schizoaffective disorder Suicide attempts or Self-harm behavior: Yes Prior psychiatric hospitalizations: yes Substance Abuse history: denies Previous psychiatric medications tried: trazodone, wellbutrin, resperidone Outpatient treatment: yes PAST MEDICAL HISTORY: HTN, hypothyroidism Family Psychiatric History: None reported or documented SOCIAL HISTORY Marital Status: Living Arrangements: with daughter Employment Status: disabled Access to guns/weapons: Denies Education: Some college History of Abuse:Denies Legal History: Denies REVIEW OF SYSTEMS Constitutional: Negative for weight loss ENT: Negative for stridor Respiratory: Negative for cough or hemoptysis All other systems reviewed and are negative MENTAL STATUS EXAMINATION General Appearance and Behavior: Age appropriate, good hygiene, wearing appropriate clothes. calm, cooperative Cooperation: Cooperative Psychomotor Behavior: Psychomotor normal Mood: depressed Affect and affective range: congruent with stated mood Thought Process: goal directed Thought Content: SI Speech: Normal tone and pace Suicidal Ideation: Yes, on and off Homicidal Ideation: Denies Hallucinations: Denies Delusions: none elicited Impulse Control: Limited Insight and Judgment: poor insight and poor judgment Memory: Limited Attention: distracted Orientation: a/o Assessment (1)Schizophrenia Current Visit: Yes Status: Acute Treatment Plan Patient admitted for inpatient psychiatric evaluation, medication adjustment and close monitoring The patient's behavior, mood, sleep and appetite will be closely monitored. Patient enrolled in individual and group therapeutic sessions and encouraged to attend. Patient provided with a safe and structured environment. Patient's physical health needs will be addressed by the Hospitalist. Hospitalist Consulted Labs including CBC, CMP, Lipid profile and Hemoglobin A1C levels ordered for baseline reference Social Assessment will be completed and the Warehouse Associate Driver will work with patient and family to ensure a suitable and safe disposition Medication adjustment will be made as clinically indicated Continue home meds Usual Wellness Taoist/Preservation: - Start Trazodone 50 mg po QHS & 50 mg po QHS PRN between 10 PM & 2 AM for insomnia - Start Melatonin 5 mg po QHS to promote circadian rhythm The patient agreed on the treatment plan, understood the risk, benefit, alternative treatment, potential consequence of no treatment, and gave informed consent. Estimated days: 7 Post hospital care: primary care provider, psychiatric provider Case staffed with Dr. Bañuelos Legal Status: Voluntary Reaction to Hospitalization: Accepting Medications and Allergies Medications and Allergies Allergies Allergy/AdvReac Type Severity Reaction Status Date / Time fluphenazine [From Prolixin] Allergy Intermediate Rash Verified 10/01/21 04:46 haloperidol [From Haldol] Allergy Intermediate Swelling Verified 10/01/21 04:46 Iodinated Contrast Media Allergy Intermediate Rash Verified 10/01/21 04:46 [Iodinated Contrast- Oral and IV Dye] Sulfa (Sulfonamide Allergy Intermediate Rash Verified 10/01/21 04:46 Antibiotics) sulfamethoxazole Allergy Intermediate WELTS Verified 10/01/21 04:45 Home Medications Medication Instructions Recorded Confirmed Last Taken Type Metoprolol Xl [Metoprolol 25 mg PO QDAY #30 tablet 12/04/18 12/30/21 Unknown Rx SUCCINATE ER TAB] Montelukast [Singulair] 10 mg PO QPM #30 tablet 12/04/18 12/30/21 Unknown Rx Acetaminophen [Acetaminophen TAB] 650 mg PO Q6H PRN tablet 07/12/21 12/30/21 Unknown Rx Furosemide [Lasix TAB] 40 mg PO QDAY tablet 07/12/21 12/30/21 Unknown Rx Levothyroxine [Synthroid] 25 mcg PO DAILY@0600 tablet 07/12/21 12/30/21 Unknown Rx Levothyroxine [Synthroid] 150 mcg PO DAILY@0600 tablet 07/12/21 12/30/21 Unknown Rx Albuterol Sulfate [Proair 90 mcg IH BID PRN 10/01/21 12/30/21 Unknown History Respiclick] Arformoterol Tartrate 15 mcg IH BID 10/01/21 12/30/21 Unknown History AtorvaSTATin [Lipitor] 20 mg PO HS 10/01/21 12/30/21 Unknown History Budesonide [Pulmicort Flexhaler] 90 mcg IH BID 10/01/21 12/30/21 Unknown History Meloxicam [Mobic] 15 mg PO DAILY 10/01/21 12/30/21 Unknown History Potassium Chloride [K-Dur] 20 meq PO QDAY 10/01/21 12/30/21 Unknown History Gabapentin [Neurontin] 800 mg PO TID 30 Days #90 10/07/21 12/30/21 Unknown Rx Melatonin [Melatonin 5MG TAB] 10 mg PO QHS tablet 10/07/21 12/30/21 Unknown Rx Mirtazapine [Remeron 15mg TAB] 7.5 mg PO QHS 30 Days #30 tablet 10/07/21 12/30/21 Unknown Rx Pantoprazole [Protonix TAB] 40 mg PO QDAY tablet 10/07/21 12/30/21 Unknown Rx QUEtiapine [SEROquel] 12.5 mg PO BID 30 Days #60 tablet 10/07/21 12/30/21 Unknown Rx Sucralfate [Carafate] 1 gm PO ACHS tablet 10/07/21 12/30/21 Unknown Rx lamoTRIgine [LaMICtal] 25 mg PO HS 30 Days #30 tablet 10/07/21 12/30/21 Unknown Rx Active Meds: Active Medications Trazodone HCl (Trazodone 50 Mg Tab) 50 mg PO QHS JUAN Last Admin: 12/30/21 21:46 Dose: 50 mg Results - Results Labs/Vitals: Last Vital Signs Temp 98.3 F 12/30/21 22:00 Pulse 99 H 12/30/21 22:00 Resp 18 12/30/21 22:00 BP 156/78 12/30/21 22:00 Pulse Ox 100 12/30/21 22:00 Physical Examination - Constitutional Vitals: Vital Signs Temp Pulse Resp BP Pulse Ox 98.3 F 99 H 18 156/78 100 12/30/21 22:00 12/30/21 22:00 12/30/21 22:00 12/30/21 22:00 12/30/21 22:00 Temperature -Last 24 Hours Temperature 98.3 F Mental Status Exam - Vital signs Last Vital Signs Temp 98.3 F 12/30/21 22:00 Pulse 99 H 12/30/21 22:00 Resp 12/30/21 22:00 BP 156/78 08/09/22 22:00 Pulse Ox 100 12/30/21 22:00 Physician Certification - Certification Statement Physician Certification Statement: This is an acknowledgement statement that MAYTE STAPLES is a 66 year old F who requires inpatient psychiatric admission for treatment which could reasonably be expected to improve the patient's condition for Estimated period of time patient will need to remain in the hospital: [ ] Plan for post-hospital care: [ ]
[2021-12-31 10:20] LABS: Basophils % (Auto) 0.5 % (0.0-1.8); Eosinophils # (Auto) 0.4 K/mm3 (0.0-0.4); Eosinophils % (Auto) 4.2 % (0.0-4.3); Hemoglobin 11.4 gm/dl (10.1-14.3); Lymphocytes # (Auto) 1.2 K/mm3 (1.2-5.4); Lymphocytes % (Auto) 12.9 % (13.4-35.0); Mean Corpuscular HGB Conc 32 % (30-34); Mean Corpuscular Volume 80 fl (79-97); Monocytes # (Auto) 1.2 K/mm3 (0.0-0.8); Monocytes % (Auto) 12.5 % (0.0-7.3); Platelet Count 355 K/mm3 (140-440); Red Blood Count 4.49 M/mm3 (3.65-5.03); Red Cell Distribution Width 17.9 % (13.2-15.2)
[2021-12-31 10:28] LABS: Alanine Aminotransferase 7 units/L (7-56); Albumin 3.7 g/dL (3.9-5); Blood Urea Nitrogen 15 mg/dL (7-17); Calcium 9.4 mg/dL (8.4-10.2); HDL Cholesterol 46 mg/dL (40-59); Hemolysis Index 1; LDL Cholesterol,Direct 64 mg/dL (50-130)
[2021-12-31 10:35] LABS: BUN/Creatinine Ratio 21
[2021-12-31] MEDS ORDERED: NON-FORMULARY EACH (Albuterol Sulfate [Proair Respiclick] 90 MCG Aer.Pow.Ba) IH PRN (10:55)
[2021-12-31] MEDS: PANTOPRAZOLE 40 MG TAB PO SCH (12:04)
--- NOTE | 2021-12-31 14:11 | Consultation ---
History of Present Illness - Reason for Consult Consult date: 12/31/21 Medical management - History of Present Illness The patient is a 66-year-old female past medical history of schizoaffective disorder, hypertension, hypothyroidism, moderate asthma, hyperlipidemia, and GERD who presented with suicidal ideation without a plan. The patient also endorsed seeing her that is no longer living. The hospitalist service was consulted for medical management. Past History Past Medical History: GERD, hyperthyroidism, hypertension, hyperlipidemia, other (Asthma) Past Surgical History: No surgical history Social history: lives with family, full code Family history: hypertension Medications and Allergies Allergies Allergy/AdvReac Type Severity Reaction Status Date / Time fluphenazine [From Prolixin] Allergy Intermediate Rash Verified 10/01/21 04:46 haloperidol [From Haldol] Allergy Intermediate Swelling Verified 10/01/21 04:46 Iodinated Contrast Media Allergy Intermediate Rash Verified 10/01/21 04:46 [Iodinated Contrast- Oral and IV Dye] Sulfa (Sulfonamide Allergy Intermediate Rash Verified 10/01/21 04:46 Antibiotics) sulfamethoxazole Allergy Intermediate WELTS Verified 10/01/21 04:45 Home Medications Medication Instructions Recorded Confirmed Last Taken Type Metoprolol Xl [Metoprolol 25 mg PO QDAY #30 tablet 12/04/18 12/30/21 Unknown Rx SUCCINATE ER TAB] Montelukast [Singulair] 10 mg PO QPM #30 tablet 12/04/18 12/30/21 Unknown Rx Acetaminophen [Acetaminophen TAB] 650 mg PO Q6H PRN tablet 07/12/21 12/30/21 Unknown Rx Furosemide [Lasix TAB] 40 mg PO QDAY tablet 07/12/21 12/30/21 Unknown Rx Levothyroxine [Synthroid] 25 mcg PO DAILY@0600 tablet 07/12/21 12/30/21 Unknown Rx Levothyroxine [Synthroid] 150 mcg PO DAILY@0600 tablet 07/12/21 12/30/21 Unknown Rx Albuterol Sulfate [Proair 90 mcg IH BID PRN 10/01/21 12/30/21 Unknown History Respiclick] Arformoterol Tartrate 15 mcg IH BID 10/01/21 12/30/21 Unknown History AtorvaSTATin [Lipitor] 20 mg PO HS 10/01/21 12/30/21 Unknown History Budesonide [Pulmicort Flexhaler] 90 mcg IH BID 10/01/21 12/30/21 Unknown History Meloxicam [Mobic] 15 mg PO DAILY 10/01/21 12/30/21 Unknown History Potassium Chloride [K-Dur] 20 meq PO QDAY 10/01/21 12/30/21 Unknown History Gabapentin [Neurontin] 800 mg PO TID 30 Days #90 10/07/21 12/30/21 Unknown Rx Melatonin [Melatonin 5MG TAB] 10 mg PO QHS tablet 10/07/21 12/30/21 Unknown Rx Mirtazapine [Remeron 15mg TAB] 7.5 mg PO QHS 30 Days #30 tablet 10/07/21 12/30/21 Unknown Rx Pantoprazole [Protonix TAB] 40 mg PO QDAY tablet 10/07/21 12/30/21 Unknown Rx QUEtiapine [SEROquel] 12.5 mg PO BID 30 Days #60 tablet 10/07/21 12/30/21 Unknown Rx Sucralfate [Carafate] 1 gm PO ACHS tablet 10/07/21 12/30/21 Unknown Rx lamoTRIgine [LaMICtal] 25 mg PO HS 30 Days #30 tablet 10/07/21 12/30/21 Unknown Rx Active Meds: Active Medications Acetaminophen (Acetaminophen 325 Mg Tab) 650 mg PO Q6H PRN PRN Reason: Pain, Mild (1-3) Albuterol (Albuterol 2.5 Mg/3 Ml Nebu) 2.5 mg IH Q6HRT PRN PRN Reason: Shortness Of Breath Atorvastatin Calcium (Atorvastatin 20 Mg Tab) 20 mg PO HS JUAN Budesonide (Budesonide 0.5 Mg/2 Ml Nebu) 0.5 mg IH Q12HRT JUAN Levothyroxine Sodium (Levothyroxine 25 Mcg Tab) 25 mcg PO DAILY@0600 [facility] Levothyroxine Sodium (Levothyroxine 150 Mcg Tab) 150 mcg PO DAILY@0600 [facility] Metoprolol Succinate (Metoprolol Succinate Xl 25 Mg Tab) 25 mg PO QDAY [facility] Montelukast Sodium (Montelukast 10 Mg Tab) 10 mg PO QPM [facility] Pantoprazole Sodium (Pantoprazole 40 Mg Tab) 40 mg PO QDAY [facility] Last Admin: 12/31/21 12:04 Dose: 40 mg Trazodone HCl (Trazodone 50 Mg Tab) 50 mg PO QHS [facility] Last Admin: 12/30/21 21:46 Dose: 50 mg Review of Systems All systems: negative Psychiatric: suicidal ideation, depression Exam - Constitutional Vitals: Temp Pulse Resp BP Pulse Ox 97.4 F L 98 H 16 129/68 100 12/31/21 09:15 12/31/21 09:15 12/31/21 09:15 12/31/21 09:15 12/31/21 09:15 General appearance: Present: no acute distress, well-nourished, obese - EENT Eyes: Present: PERRL, EOM intact ENT: hearing intact, clear oral mucosa - Neck Neck: Present: supple, normal ROM - Respiratory Respiratory effort: normal Respiratory: bilateral: CTA - Cardiovascular Rhythm: regular Heart Sounds: Present: S1 & S2 - Extremities Extremities: no ischemia, pulses intact, pulses symmetrical, normal temperature, normal color Peripheral Pulses: within normal limits - Abdominal General gastrointestinal: Present: soft, non-tender, non-distended, normal bowel sounds Female genitourinary: Present: deferred - Rectal Rectal Exam: deferred - Integumentary Integumentary: Present: clear, warm, dry - Musculoskeletal Musculoskeletal: strength equal bilaterally - Psychiatric Psychiatric: cooperative, depressed - Neurologic Neurologic: CNII-XII intact - Allied Health Allied health notes reviewed: nursing Results - Labs CBC & Chem 7: 12/31/21 09:43 12/31/21 09:43 Labs: Abnormal lab results 12/31/21 12/31/21 Range/Units 09:43 09:43 MCH 26 L (28-32) pg RDW 17.9 H (13.2-15.2) % Lymph % (Auto) 12.9 L (13.4-35.0) % [place] % (Auto) 12.5 H (0.0-7.3) % [place] # (Auto) 1.2 H (0.0-0.8) K/mm3 Albumin 3.7 L (3.9-5) g/dL Assessment and Plan #Schizoaffective disorder #Suicidal ideation Management per primary team #Hypertension #Hyperlipidemia - home medications: Metoprolol succinate 25 mg daily and Lipitor 20 mg daily - current medications: Metoprolol succinate 25 mg daily and Lipitor 20 mg daily - SBP goal <160 and DBP goal <90 while inpatient - continue to monitor #Moderate intermittent asthma Continue home montelukast 10 mg daily, albuterol inhaler every 6 hours as needed, and budesonide inhaler twice daily #GERD Continue home Protonix 40 mg daily #Hypothyroidism Continue home levothyroxine 175 mcg daily #Morbid obesity #Weight loss counseling #Exercise counseling - BMI 46.8 - Counseled patient on the importance of weight loss, incorporating exercise, and dietary changes (lean meats, fresh fruits and vegetables, and water intake). Patient expresses understanding. - Time: +15 min #Advanced care planning -Disease education conducted, care plan discussed, diagnoses discussed, prognosis discussed, and patient acknowledges understanding with care plan -Time: +30 min Thank you for this interesting consult. The hospitalist service will continue to follow while the patient is inpatient.
[2021-12-31] MEDS: MONTELUKAST 10 MG TAB PO SCH (17:01)
[2021-12-31] MEDS: traZODone 50 MG TAB PO SCH (21:25)
[2021-12-31] MEDS ORDERED: NON-FORMULARY EACH (Budesonide [Pulmicort Flexhaler] 90 MCG Aer.Pow.Ba) IH SCH (22:00)
[2022-01-01] MEDS: LEVOTHYROXINE 150 MCG TAB PO SCH (05:43)
--- NOTE | 2022-01-01 09:03 | Progress Note ---
Subjective Date of service: 01/01/22 Subjective Comment: 01/01: The patient was seen today. She states she is ok but reports having nightmares. She continues to endorse depression and rates as 4/10. She denies any current suicidal/homicidal ideation and denies hallucinations. No changes made today. REVIEW OF SYSTEMS Constitutional: Negative for weight loss ENT: Negative for stridor Respiratory: Negative for cough or hemoptysis All other systems reviewed and are negative MENTAL STATUS EXAMINATION General Appearance and Behavior: Age appropriate, good hygiene, wearing appropriate clothes. calm, cooperative Cooperation: Cooperative Psychomotor Behavior: Psychomotor normal Mood: depressed Affect and affective range: congruent with stated mood Thought Process: goal directed Thought Content: Reality oriented Speech: Normal tone and pace Suicidal Ideation: Denies Homicidal Ideation: Denies Hallucinations: Denies Delusions: none elicited Impulse Control: Limited Insight and Judgment: poor insight and judgment Memory: Limited Attention: distracted Orientation: a/o Assessment (1)Schizoaffective disorder Current Visit: Yes Status: Acute Treatment Plan Patient admitted for inpatient psychiatric evaluation, medication adjustment and close monitoring The patient's behavior, mood, sleep and appetite will be closely monitored. Patient enrolled in individual and group therapeutic sessions and encouraged to attend. Patient provided with a safe and structured environment. Patient's physical health needs will be addressed by the Hospitalist. Hospitalist Consulted Labs including CBC, CMP, Lipid profile and Hemoglobin A1C levels ordered for baseline reference Social Assessment will be completed and the Spinning [employer] Operator [employer] will work with patient and family to ensure a suitable and safe disposition Medication adjustment will be made as clinically indicated Continue home meds Usual Wellness Episcopal/Preservation: - Start Trazodone 50 mg po QHS & 50 mg po QHS PRN between 10 PM & 2 AM for insomnia - Start Melatonin 5 mg po QHS to promote circadian rhythm The patient agreed on the treatment plan, understood the risk, benefit, alternative treatment, potential consequence of no treatment, and gave informed consent. Estimated days: 7 Post hospital care: primary care provider, psychiatric provider Case staffed with Dr. Bañuelos Legal Status: Voluntary Reaction to Hospitalization: Accepting Medications and Allergies Medications and Allergies Allergies Allergy/AdvReac Type Severity Reaction Status Date / Time fluphenazine [From Prolixin] Allergy Intermediate Rash Verified 10/01/21 04:46 haloperidol [From Haldol] Allergy Intermediate Swelling Verified 10/01/21 04:46 Iodinated Contrast Media Allergy Intermediate Rash Verified 10/01/21 04:46 [Iodinated Contrast- Oral and IV Dye] Sulfa (Sulfonamide Allergy Intermediate Rash Verified 10/01/21 04:46 Antibiotics) sulfamethoxazole Allergy Intermediate WELTS Verified 10/01/21 04:45 Home Medications Medication Instructions Recorded Confirmed Last Taken Type Metoprolol Xl [Metoprolol 25 mg PO QDAY #30 tablet 12/04/18 12/30/21 Unknown Rx SUCCINATE ER TAB] Montelukast [Singulair] 10 mg PO QPM #30 tablet 12/04/18 12/30/21 Unknown Rx Acetaminophen [Acetaminophen TAB] 650 mg PO Q6H PRN tablet 07/12/21 12/30/21 Unknown Rx Furosemide [Lasix TAB] 40 mg PO QDAY tablet 07/12/21 12/30/21 Unknown Rx Levothyroxine [Synthroid] 25 mcg PO DAILY@0600 tablet 07/12/21 12/30/21 Unknown Rx Levothyroxine [Synthroid] 150 mcg PO DAILY@0600 tablet 07/12/21 12/30/21 Unknown Rx Albuterol Sulfate [Proair 90 mcg IH BID PRN 10/01/21 12/30/21 Unknown History Respiclick] Arformoterol Tartrate 15 mcg IH BID 10/01/21 12/30/21 Unknown History AtorvaSTATin [Lipitor] 20 mg PO HS 10/01/21 12/30/21 Unknown History Budesonide [Pulmicort Flexhaler] 90 mcg IH BID 10/01/21 12/30/21 Unknown History Meloxicam [Mobic] 15 mg PO DAILY 10/01/21 12/30/21 Unknown History Potassium Chloride [K-Dur] 20 meq PO QDAY 10/01/21 12/30/21 Unknown History Gabapentin [Neurontin] 800 mg PO TID 30 Days #90 10/07/21 12/30/21 Unknown Rx Melatonin [Melatonin 5MG TAB] 10 mg PO QHS tablet 10/07/21 12/30/21 Unknown Rx Mirtazapine [Remeron 15mg TAB] 7.5 mg PO QHS 30 Days #30 tablet 10/07/21 12/30/21 Unknown Rx Pantoprazole [Protonix TAB] 40 mg PO QDAY tablet 10/07/21 12/30/21 Unknown Rx QUEtiapine [SEROquel] 12.5 mg PO BID 30 Days #60 tablet 10/07/21 12/30/21 Unknown Rx Sucralfate [Carafate] 1 gm PO ACHS tablet 10/07/21 12/30/21 Unknown Rx lamoTRIgine [LaMICtal] 25 mg PO HS 30 Days #30 tablet 10/07/21 12/30/21 Unknown Rx Active Meds: Active Medications Acetaminophen (Acetaminophen 325 Mg Tab) 650 mg PO Q6H PRN PRN Reason: Pain, Mild (1-3) Albuterol (Albuterol 2.5 Mg/3 Ml Nebu) 2.5 mg IH Q6HRT PRN PRN Reason: Shortness Of Breath Atorvastatin Calcium (Atorvastatin 20 Mg Tab) 20 mg PO HS [facility] Last Admin: 12/31/21 21:25 Dose: 20 mg Budesonide (Budesonide 0.5 Mg/2 Ml Nebu) 0.5 mg IH Q12HRT [facility] Levothyroxine Sodium (Levothyroxine 25 Mcg Tab) 25 mcg PO DAILY@0600 [facility] Levothyroxine Sodium (Levothyroxine 150 Mcg Tab) 150 mcg PO DAILY@0600 [facility] Last Admin: 01/01/22 05:43 Dose: 150 mcg Metoprolol Succinate (Metoprolol Succinate Xl 25 Mg Tab) 25 mg PO QDAY [facility] Montelukast Sodium (Montelukast 10 Mg Tab) 10 mg PO QPM [facility] Last Admin: 12/31/21 17:01 Dose: 10 mg Pantoprazole Sodium (Pantoprazole 40 Mg Tab) 40 mg PO QDAY [facility] Last Admin: 12/31/21 12:04 Dose: 40 mg Trazodone HCl (Trazodone 50 Mg Tab) 50 mg PO QHS [facility] Last Admin: 12/31/21 21:25 Dose: 50 mg Results - Results Labs/Vitals: Laboratory Last Values WBC 9.3 K/mm3 (4.5-11.0) 12/31/21 09:43 RBC 4.49 M/mm3 (3.65-5.03) 12/31/21 09:43 Hgb 11.4 gm/dl (10.1-14.3) 12/31/21 09:43 Hct 36.0 % (30.3-42.9) 12/31/21 09:43 MCV 80 fl (79-97) 12/31/21 09:43 MCH 26 pg (28-32) L 12/31/21 09:43 MCHC 32 % (30-34) 12/31/21 09:43 RDW 17.9 % (13.2-15.2) H 12/31/21 09:43 Plt Count 355 K/mm3 (140-440) 12/31/21 09:43 Lymph % (Auto) 12.9 % (13.4-35.0) L 12/31/21 09:43 [place] % (Auto) 12.5 % (0.0-7.3) H 12/31/21 09:43 Eos % (Auto) 4.2 % (0.0-4.3) 12/31/21 09:43 Baso % (Auto) 0.5 % (0.0-1.8) 12/31/21 09:43 Lymph # (Auto) 1.2 K/mm3 (1.2-5.4) 12/31/21 09:43 [place] # (Auto) 1.2 K/mm3 (0.0-0.8) H 12/31/21 09:43 Eos # (Auto) 0.4 K/mm3 (0.0-0.4) 12/31/21 09:43 Baso # (Auto) 0.0 K/mm3 (0.0-0.1) 12/31/21 09:43 Seg Neutrophils % 69.9 % (40.0-70.0) 12/31/21 09:43 Seg Neutrophils # 6.5 K/mm3 (1.8-7.7) 12/31/21 09:43 Sodium 139 mmol/L (137-145) 12/31/21 09:43 Potassium 3.8 mmol/L (3.6-5.0) 12/31/21 09:43 Chloride 100.1 mmol/L (98-107) 12/31/21 09:43 Carbon Dioxide 29 mmol/L (22-30) 12/31/21 09:43 Anion Gap 14 mmol/L 12/31/21 09:43 BUN 15 mg/dL (7-17) 12/31/21 09:43 Creatinine 0.7 mg/dL (0.6-1.2) 12/31/21 09:43 Estimated GFR > 60 ml/min 12/31/21 09:43 BUN/Creatinine Ratio 21 % 12/31/21 09:43 Glucose 80 mg/dL (65-100) 12/31/21 09:43 Hemoglobin A1c 5.7 % (4-6) 12/31/21 09:43 Calcium 9.4 mg/dL (8.4-10.2) 12/31/21 09:43 Total Bilirubin 0.40 mg/dL (0.1-1.2) 12/31/21 09:43 AST 10 units/L (5-40) 12/31/21 09:43 ALT 7 units/L (7-56) 12/31/21 09:43 Alkaline Phosphatase 104 units/L (35-129) 12/31/21 09:43 Total Protein 7.8 g/dL (6.3-8.2) 12/31/21 09:43 Albumin 3.7 g/dL (3.9-5) L 12/31/21 09:43 Albumin/Globulin Ratio 0.9 % 12/31/21 09:43 Triglycerides 113 mg/dL (2-149) 12/31/21 09:43 Cholesterol 129 mg/dL (50-199) 12/31/21 09:43 LDL Cholesterol Direct 64 mg/dL (50-130) 12/31/21 09:43 HDL Cholesterol 46 mg/dL (40-59) 12/31/21 09:43 Cholesterol/HDL Ratio 2.80 % 12/31/21 09:43 TSH 2.250 mlU/mL (0.270-4.200) 12/31/21 09:43 Last Vital Signs Temp 98.6 F 12/31/21 22:00 Pulse 89 12/31/21 22:00 Resp 18 12/31/21 22:00 BP 138/66 12/31/21 22:00 Pulse Ox 98 12/31/21 22:00
[2022-01-01] MEDS: METOPROLOL SUCCINATE XL 25 MG TAB PO SCH (09:33)
[2022-01-01] MEDS: PANTOPRAZOLE 40 MG TAB PO SCH (09:34)
[2022-01-01] MEDS: LEVOTHYROXINE 25 MCG TAB PO SCH (09:36)
--- NOTE | 2022-01-01 10:30 | Progress Note ---
Assessment and Plan Assessment and plan: The patient is a 66-year-old female past medical history of schizoaffective disorder, hypertension, hypothyroidism, moderate asthma, hyperlipidemia, and GERD who presented with suicidal ideation without a plan. The patient also endorsed seeing her that is no longer living. The hospitalist service was consulted for medical management. #Schizoaffective disorder #Suicidal ideation Management per primary team #Hypertension #Hyperlipidemia - home medications: Metoprolol succinate 25 mg daily and Lipitor 20 mg daily - current medications: Metoprolol succinate 25 mg daily and Lipitor 20 mg daily - SBP goal <160 and DBP goal <90 while inpatient - continue to monitor #Moderate intermittent asthma Continue home montelukast 10 mg daily, albuterol inhaler every 6 hours as needed, and budesonide inhaler twice daily #GERD Continue home Protonix 40 mg daily #Hypothyroidism Continue home levothyroxine 175 mcg daily #Morbid obesity #Weight loss counseling #Exercise counseling - BMI 46.8 - Counseled patient on the importance of weight loss, incorporating exercise, and dietary changes (lean meats, fresh fruits and vegetables, and water intake). Patient expresses understanding. - Time: +15 min #Advanced care planning -Disease education conducted, care plan discussed, diagnoses discussed, prognosis discussed, and patient acknowledges understanding with care plan -Time: +30 min Thank you for this interesting consult. The patient can be discharged from the hospitalist service whenever the primary team is ready for the patient to be discharged from the hospital. Disposition Plan: Continue medical management Total Time Spent with Patient (Minutes): 30 min History Interval history: No acute events overnight. Hospitalist Physical - Constitutional Vitals: Temp Pulse Resp BP Pulse Ox 98.5 F 86 18 121/61 99 01/01/22 07:23 01/01/22 09:33 01/01/22 07:23 01/01/22 09:33 01/01/22 07:23 General appearance: Present: no acute distress, well-nourished, obese - EENT Eyes: Present: PERRL, EOM intact ENT: hearing intact, clear oral mucosa - Neck Neck: Present: supple, normal ROM - Respiratory Respiratory effort: normal Respiratory: bilateral: CTA - Cardiovascular Rhythm: regular Heart Sounds: Present: S1 & S2 - Extremities Extremities: no ischemia, pulses intact, pulses symmetrical, No edema, normal temperature, normal color Peripheral Pulses: within normal limits - Abdominal General gastrointestinal: soft, non-tender, non-distended, normal bowel sounds - Integumentary Integumentary: Present: clear, warm, dry - Psychiatric Psychiatric: cooperative, depressed, other (Having nightmares) - Neurologic Neurologic: CNII-XII intact, moves all extremities - Allied Health Allied health notes reviewed: nursing Results - Labs CBC & Chem 7: 12/31/21 09:43 12/31/21 09:43 Labs: Laboratory Last Values WBC 9.3 K/mm3 (4.5-11.0) 12/31/21 09:43 RBC 4.49 M/mm3 (3.65-5.03) 12/31/21 09:43 Hgb 11.4 gm/dl (10.1-14.3) 12/31/21 09:43 Hct 36.0 % (30.3-42.9) 12/31/21 09:43 MCV 80 fl (79-97) 12/31/21 09:43 MCH 26 pg (28-32) L 12/31/21 09:43 MCHC 32 % (30-34) 12/31/21 09:43 RDW 17.9 % (13.2-15.2) H 12/31/21 09:43 Plt Count 355 K/mm3 (140-440) 12/31/21 09:43 Lymph % (Auto) 12.9 % (13.4-35.0) L 12/31/21 09:43 [place] % (Auto) 12.5 % (0.0-7.3) H 12/31/21 09:43 Eos % (Auto) 4.2 % (0.0-4.3) 12/31/21 09:43 Baso % (Auto) 0.5 % (0.0-1.8) 12/31/21 09:43 Lymph # (Auto) 1.2 K/mm3 (1.2-5.4) 12/31/21 09:43 [place] # (Auto) 1.2 K/mm3 (0.0-0.8) H 12/31/21 09:43 Eos # (Auto) 0.4 K/mm3 (0.0-0.4) 12/31/21 09:43 Baso # (Auto) 0.0 K/mm3 (0.0-0.1) 12/31/21 09:43 Seg Neutrophils % 69.9 % (40.0-70.0) 12/31/21 09:43 Seg Neutrophils # 6.5 K/mm3 (1.8-7.7) 12/31/21 09:43 Sodium 139 mmol/L (137-145) 12/31/21 09:43 Potassium 3.8 mmol/L (3.6-5.0) 12/31/21 09:43 Chloride 100.1 mmol/L (98-107) 12/31/21 09:43 Carbon Dioxide 29 mmol/L (22-30) 12/31/21 09:43 Anion Gap 14 mmol/L 12/31/21 09:43 BUN 15 mg/dL (7-17) 12/31/21 09:43 Creatinine 0.7 mg/dL (0.6-1.2) 12/31/21 09:43 Estimated GFR > 60 ml/min 12/31/21 09:43 BUN/Creatinine Ratio 21 % 12/31/21 09:43 Glucose 80 mg/dL (65-100) 12/31/21 09:43 Hemoglobin A1c 5.7 % (4-6) 12/31/21 09:43 Calcium 9.4 mg/dL (8.4-10.2) 12/31/21 09:43 Total Bilirubin 0.40 mg/dL (0.1-1.2) 12/31/21 09:43 AST 10 units/L (5-40) 12/31/21 09:43 ALT 7 units/L (7-56) 12/31/21 09:43 Alkaline Phosphatase 104 units/L (35-129) 12/31/21 09:43 Total Protein 7.8 g/dL (6.3-8.2) 12/31/21 09:43 Albumin 3.7 g/dL (3.9-5) L 12/31/21 09:43 Albumin/Globulin Ratio 0.9 % 12/31/21 09:43 Triglycerides 113 mg/dL (2-149) 12/31/21 09:43 Cholesterol 129 mg/dL (50-199) 12/31/21 09:43 LDL Cholesterol Direct 64 mg/dL (50-130) 12/31/21 09:43 HDL Cholesterol 46 mg/dL (40-59) 12/31/21 09:43 Cholesterol/HDL Ratio 2.80 % 12/31/21 09:43 TSH 2.250 mlU/mL (0.270-4.200) 12/31/21 09:43 [place]/IV: Voiding Method Toilet Active Medications - Current Medications Current Medications: Generic Name Dose Route Start Last Admin Trade Name Freq PRN Reason Stop Dose Admin Acetaminophen 650 mg 12/31/21 10:55 Acetaminophen 325 Mg Tab PO Q6H PRN Pain, Mild (1-3) Albuterol 2.5 mg 12/31/21 11:13 Albuterol 2.5 Mg/3 Ml Nebu IH Q6HRT PRN Shortness Of Breath Atorvastatin Calcium 20 mg 12/31/21 22:00 12/31/21 21:25 Atorvastatin 20 Mg Tab PO 20 mg HS JUAN Administration Budesonide 0.5 mg 12/31/21 20:00 Budesonide 0.5 Mg/2 Ml Nebu IH Q12HRT JUAN Levothyroxine Sodium 25 mcg 01/01/22 06:00 01/01/22 09:36 Levothyroxine 25 Mcg Tab PO Not Given DAILY@0600 JUAN Levothyroxine Sodium 150 mcg 01/01/22 06:00 01/01/22 05:43 Levothyroxine 150 Mcg Tab PO 150 mcg DAILY@0600 JUAN Administration Metoprolol Succinate 25 mg 01/01/22 10:00 01/01/22 09:33 Metoprolol Succinate Xl 25 Mg Tab PO 25 mg QDAY JUAN Administration Montelukast Sodium 10 mg 12/31/21 18:00 12/31/21 17:01 Montelukast 10 Mg Tab PO 10 mg QPM JUAN Administration Pantoprazole Sodium 40 mg 12/31/21 11:00 01/01/22 09:34 Pantoprazole 40 Mg Tab PO 40 mg QDAY JUAN Administration Trazodone HCl 50 mg 12/30/21 22:00 12/31/21 21:25 Trazodone 50 Mg Tab PO 50 mg QHS JUAN Administration
[2022-01-01] MEDS: MONTELUKAST 10 MG TAB PO SCH (17:12)
[2022-01-01] MEDS: BUDESONIDE 0.5 MG/2 ML NEBU IH SCH ×2 (19:33→20:01)
[2022-01-01] MEDS: ACETAMINOPHEN 325 MG TAB PO PRN (21:04)
[2022-01-01] MEDS: traZODone 50 MG TAB PO SCH (21:04)
[2022-01-02] MEDS: LEVOTHYROXINE 25 MCG TAB PO SCH (06:22)
[2022-01-02] MEDS: LEVOTHYROXINE 150 MCG TAB PO SCH (06:22)
[2022-01-02] MEDS: METOPROLOL SUCCINATE XL 25 MG TAB PO SCH (09:15)
[2022-01-02] MEDS: FUROSEMIDE 40 MG TAB PO SCH (09:15)
[2022-01-02] MEDS: PANTOPRAZOLE 40 MG TAB PO SCH (09:15)
--- NOTE | 2022-01-02 10:39 | Progress Note ---
Subjective Date of service: 01/02/22 Principal diagnosis: MDD Subjective Comment: The patient was seen today. She endorses feeling depressed. She denies SI/HI at present. She says she slept on and off. REVIEW OF SYSTEMS Constitutional: Negative for weight loss ENT: Negative for stridor Respiratory: Negative for cough or hemoptysis All other systems reviewed and are negative MENTAL STATUS EXAMINATION General Appearance and Behavior: Age appropriate, good hygiene, wearing appropriate clothes. calm, cooperative Cooperation: Cooperative Psychomotor Behavior: Psychomotor normal Mood: depressed Affect and affective range: congruent with stated mood Thought Process: goal directed Thought Content: Reality oriented Speech: Normal tone and pace Suicidal Ideation: Denies Homicidal Ideation: Denies Hallucinations: Denies Delusions: none elicited Impulse Control: Limited Insight and Judgment: poor insight and judgment Memory: Limited Attention: distracted Orientation: a/o Assessment (1)Schizoaffective disorder Current Visit: Yes Status: Acute Treatment Plan Patient admitted for inpatient psychiatric evaluation, medication adjustment and close monitoring The patient's behavior, mood, sleep and appetite will be closely monitored. Patient enrolled in individual and group therapeutic sessions and encouraged to attend. Patient provided with a safe and structured environment. Patient's physical health needs will be addressed by the Hospitalist. Hospitalist Consulted Labs including CBC, CMP, Lipid profile and Hemoglobin A1C levels ordered for baseline reference Social Assessment will be completed and the [place] Developer will work with patient and family to ensure a suitable and safe disposition Medication adjustment will be made as clinically indicated Start Lexapro 5mg po daily Usual Wellness Yarsanism/Preservation: - Start Trazodone 50 mg po QHS & 50 mg po QHS PRN between 10 PM & 2 AM for insomnia - Start Melatonin 5 mg po QHS to promote circadian rhythm The patient agreed on the treatment plan, understood the risk, benefit, alternative treatment, potential consequence of no treatment, and gave informed consent. Estimated days: 7 Post hospital care: primary care provider, psychiatric provider Case staffed with Dr. Bañuelos Medications and Allergies Allergies Allergy/AdvReac Type Severity Reaction Status Date / Time fluphenazine [From Prolixin] Allergy Intermediate Rash Verified 10/01/21 04:46 haloperidol [From Haldol] Allergy Intermediate Swelling Verified 10/01/21 04:46 Iodinated Contrast Media Allergy Intermediate Rash Verified 10/01/21 04:46 [Iodinated Contrast- Oral and IV Dye] Sulfa (Sulfonamide Allergy Intermediate Rash Verified 10/01/21 04:46 Antibiotics) sulfamethoxazole Allergy Intermediate WELTS Verified 10/01/21 04:45 Home Medications Medication Instructions Recorded Confirmed Last Taken Type Metoprolol Xl [Metoprolol 25 mg PO QDAY #30 tablet 12/04/18 12/30/21 Unknown Rx SUCCINATE ER TAB] Montelukast [Singulair] 10 mg PO QPM #30 tablet 12/04/18 12/30/21 Unknown Rx Acetaminophen [Acetaminophen TAB] 650 mg PO Q6H PRN tablet 07/12/21 12/30/21 Unknown Rx Furosemide [Lasix TAB] 40 mg PO QDAY tablet 07/12/21 12/30/21 Unknown Rx Levothyroxine [Synthroid] 25 mcg PO DAILY@0600 tablet 07/12/21 12/30/21 Unknown Rx Levothyroxine [Synthroid] 150 mcg PO DAILY@0600 tablet 07/12/21 12/30/21 Unkno wn Rx Albuterol Sulfate [Proair 90 mcg IH BID PRN 10/01/21 12/30/21 Unknown History Respiclick] Arformoterol Tartrate 15 mcg IH BID 10/01/21 12/30/21 Unknown History AtorvaSTATin [Lipitor] 20 mg PO HS 10/01/21 12/30/21 Unknown History Budesonide [Pulmicort Flexhaler] 90 mcg IH BID 10/01/21 12/30/21 Unknown History Meloxicam [Mobic] 15 mg PO DAILY 10/01/21 12/30/21 Unknown History Potassium Chloride [K-Dur] 20 meq PO QDAY 10/01/21 12/30/21 Unknown History Gabapentin [Neurontin] 800 mg PO TID 30 Days #90 10/07/21 12/30/21 Unknown Rx Melatonin [Melatonin 5MG TAB] 10 mg PO QHS tablet 10/07/21 12/30/21 Unknown Rx Mirtazapine [Remeron 15mg TAB] 7.5 mg PO QHS 30 Days #30 tablet 10/07/21 12/30/21 Unknown Rx Pantoprazole [Protonix TAB] 40 mg PO QDAY tablet 10/07/21 12/30/21 Unknown Rx QUEtiapine [SEROquel] 12.5 mg PO BID 30 Days #60 tablet 10/07/21 12/30/21 Unknown Rx Sucralfate [Carafate] 1 gm PO ACHS tablet 10/07/21 12/30/21 Unknown Rx lamoTRIgine [LaMICtal] 25 mg PO HS 30 Days #30 tablet 10/07/21 12/30/21 Unknown Rx Active Meds: Active Medications Acetaminophen (Acetaminophen 325 Mg Tab) 650 mg PO Q6H PRN PRN Reason: Pain, Mild (1-3) Last Admin: 01/01/22 21:04 Dose: 650 mg Albuterol (Albuterol 2.5 Mg/3 Ml Nebu) 2.5 mg IH Q6HRT PRN PRN Reason: Shortness Of Breath Atorvastatin Calcium (Atorvastatin 20 Mg Tab) 20 mg PO HS [facility] Last Admin: 01/01/22 21:05 Dose: 20 mg Budesonide (Budesonide 0.5 Mg/2 Ml Nebu) 0.5 mg IH Q12HRT [facility] Last Admin: 01/01/22 20:01 Dose: 0.5 mg Furosemide (Furosemide 40 Mg Tab) 40 mg PO QDAY [facility] Last Admin: 01/02/22 09:15 Dose: 40 mg Levothyroxine Sodium (Levothyroxine 25 Mcg Tab) 25 mcg PO DAILY@0600 [facility] Last Admin: 01/02/22 06:22 Dose: 25 mcg Levothyroxine Sodium (Levothyroxine 150 Mcg Tab) 150 mcg PO DAILY@0600 [facility] Last Admin: 01/02/22 06:22 Dose: 150 mcg Metoprolol Succinate (Metoprolol Succinate Xl 25 Mg Tab) 25 mg PO QDAY [facility] Last Admin: 01/02/22 09:15 Dose: 25 mg Montelukast Sodium (Montelukast 10 Mg Tab) 10 mg PO QPM [facility] Last Admin: 01/01/22 17:12 Dose: 10 mg Pantoprazole Sodium (Pantoprazole 40 Mg Tab) 40 mg PO QDAY [facility] Last Admin: 01/02/22 09:15 Dose: 40 mg Trazodone HCl (Trazodone 50 Mg Tab) 50 mg PO QHS [facility] Last Admin: 01/01/22 21:04 Dose: 50 mg Results - Results Labs/Vitals: Laboratory Last Values WBC 9.3 K/mm3 (4.5-11.0) 12/31/21 09:43 RBC 4.49 M/mm3 (3.65-5.03) 12/31/21 09:43 Hgb 11.4 gm/dl (10.1-14.3) 12/31/21 09:43 Hct 36.0 % (30.3-42.9) 12/31/21 09:43 MCV 80 fl (79-97) 12/31/21 09:43 MCH 26 pg (28-32) L 12/31/21 09:43 MCHC 32 % (30-34) 12/31/21 09:43 RDW 17.9 % (13.2-15.2) H 12/31/21 09:43 Plt Count 355 K/mm3 (140-440) 12/31/21 09:43 Lymph % (Auto) 12.9 % (13.4-35.0) L 12/31/21 09:43 [place] % (Auto) 12.5 % (0.0-7.3) H 12/31/21 09:43 Eos % (Auto) 4.2 % (0.0-4.3) 12/31/21 09:43 Baso % (Auto) 0.5 % (0.0-1.8) 12/31/21 09:43 Lymph # (Auto) 1.2 K/mm3 (1.2-5.4) 12/31/21 09:43 [place] # (Auto) 1.2 K/mm3 (0.0-0.8) H 12/31/21 09:43 Eos # (Auto) 0.4 K/mm3 (0.0-0.4) 12/31/21 09:43 Baso # (Auto) 0.0 K/mm3 (0.0-0.1) 12/31/21 09:43 Seg Neutrophils % 69.9 % (40.0-70.0) 12/31/21 09:43 Seg Neutrophils # 6.5 K/mm3 (1.8-7.7) 12/31/21 09:43 Sodium 139 mmol/L (137-145) 12/31/21 09:43 Potassium 3.8 mmol/L (3.6-5.0) 12/31/21 09:43 Chloride 100.1 mmol/L (98-107) 12/31/21 09:43 Carbon Dioxide 29 mmol/L (22-30) 12/31/21 09:43 Anion Gap 14 mmol/L 12/31/21 09:43 BUN 15 mg/dL (7-17) 12/31/21 09:43 Creatinine 0.7 mg/dL (0.6-1.2) 12/31/21 09:43 Estimated GFR > 60 ml/min 12/31/21 09:43 BUN/Creatinine Ratio 21 % 12/31/21 09:43 Glucose 80 mg/dL (65-100) 12/31/21 09:43 Hemoglobin A1c 5.7 % (4-6) 12/31/21 09:43 Calcium 9.4 mg/dL (8.4-10.2) 12/31/21 09:43 Total Bilirubin 0.40 mg/dL (0.1-1.2) 12/31/21 09:43 AST 10 units/L (5-40) 12/31/21 09:43 ALT 7 units/L (7-56) 12/31/21 09:43 Alkaline Phosphatase 104 units/L (35-129) 12/31/21 09:43 Total Protein 7.8 g/dL (6.3-8.2) 12/31/21 09:43 Albumin 3.7 g/dL (3.9-5) L 12/31/21 09:43 Albumin/Globulin Ratio 0.9 % 12/31/21 09:43 Triglycerides 113 mg/dL (2-149) 12/31/21 09:43 Cholesterol 129 mg/dL (50-199) 12/31/21 09:43 LDL Cholesterol Direct 64 mg/dL (50-130) 12/31/21 09:43 HDL Cholesterol 46 mg/dL (40-59) 12/31/21 09:43 Cholesterol/HDL Ratio 2.80 % 12/31/21 09:43 TSH 2.250 mlU/mL (0.270-4.200) 12/31/21 09:43 Last Vital Signs Temp 98.7 F 01/01/22 21:17 Pulse 84 01/02/22 09:15 Resp 20 01/01/22 21:17 BP 134/60 01/02/22 09:15 Pulse Ox 100 01/01/22 21:17
[2022-01-02] MEDS: BUDESONIDE 0.5 MG/2 ML NEBU IH SCH ×2 (13:45→20:27)
[2022-01-02] MEDS: ALBUTEROL 2.5 MG/3 ML NEBU IH PRN (13:46)
[2022-01-02] MEDS: ESCITALOPRAM 10 MG TAB PO SCH (14:24)
[2022-01-02] MEDS: MONTELUKAST 10 MG TAB PO SCH (17:19)
[2022-01-02] MEDS: traZODone 50 MG TAB PO SCH (21:06)
[2022-01-03] MEDS: LEVOTHYROXINE 150 MCG TAB PO SCH (06:10)
[2022-01-03] MEDS: LEVOTHYROXINE 25 MCG TAB PO SCH (06:10)
--- NOTE | 2022-01-03 08:43 | Progress Note ---
Subjective Date of service: 01/03/22 Principal diagnosis: MDD Subjective Comment: The patient was seen today. She says she feels better today than yesterday. She denies SI/HI. She denies hallucinations. REVIEW OF SYSTEMS Constitutional: Negative for weight loss ENT: Negative for stridor Respiratory: Negative for cough or hemoptysis All other systems reviewed and are negative MENTAL STATUS EXAMINATION General Appearance and Behavior: Age appropriate, good hygiene, wearing appropriate clothes. calm, cooperative Cooperation: Cooperative Psychomotor Behavior: Psychomotor normal Mood: depressed Affect and affective range: congruent with stated mood Thought Process: goal directed Thought Content: Reality oriented Speech: Normal tone and pace Suicidal Ideation: Denies Homicidal Ideation: Denies Hallucinations: Denies Delusions: none elicited Impulse Control: Limited Insight and Judgment: poor insight and judgment Memory: Limited Attention: distracted Orientation: a/o Assessment (1)Schizoaffective disorder Current Visit: Yes Status: Acute Treatment Plan Patient admitted for inpatient psychiatric evaluation, medication adjustment and close monitoring The patient's behavior, mood, sleep and appetite will be closely monitored. Patient enrolled in individual and group therapeutic sessions and encouraged to attend. Patient provided with a safe and structured environment. Patient's physical health needs will be addressed by the Hospitalist. Hospitalist Consulted Labs including CBC, CMP, Lipid profile and Hemoglobin A1C levels ordered for baseline reference Social Assessment will be completed and the Sample Maker Original will work with patient and family to ensure a suitable and safe disposition Medication adjustment will be made as clinically indicated Start Lexapro 5mg po daily yesterday No changes made today Usual Wellness Hindu/Preservation: - Start Trazodone 50 mg po QHS & 50 mg po QHS PRN between 10 PM & 2 AM for insomnia - Start Melatonin 5 mg po QHS to promote circadian rhythm The patient agreed on the treatment plan, understood the risk, benefit, alternative treatment, potential consequence of no treatment, and gave informed consent. Estimated days: 7 Post hospital care: primary care provider, psychiatric provider Case staffed with Dr. Bañuelos Medications and Allergies Allergies Allergy/AdvReac Type Severity Reaction Status Date / Time fluphenazine [From Prolixin] Allergy Intermediate Rash Verified 10/01/21 04:46 haloperidol [From Haldol] Allergy Intermediate Swelling Verified 10/01/21 04:46 Iodinated Contrast Media Allergy Intermediate Rash Verified 10/01/21 04:46 [Iodinated Contrast- Oral and IV Dye] Sulfa (Sulfonamide Allergy Intermediate Rash Verified 10/01/21 04:46 Antibiotics) sulfamethoxazole Allergy Intermediate WELTS Verified 10/01/21 04:45 Home Medications Medication Instructions Recorded Confirmed Last Taken Type Metoprolol Xl [Metoprolol 25 mg PO QDAY #30 tablet 12/04/18 12/30/21 Unknown Rx SUCCINATE ER TAB] Montelukast [Singulair] 10 mg PO QPM #30 tablet 12/04/18 12/30/21 Unknown Rx Acetaminophen [Acetaminophen TAB] 650 mg PO Q6H PRN tablet 07/12/21 12/30/21 Unknown Rx Furosemide [Lasix TAB] 40 mg PO QDAY tablet 07/12/21 12/30/21 Unknown Rx Levothyroxine [Synthroid] 25 mcg PO DAILY@0600 tablet 07/12/21 12/30/21 Unknown Rx Levothyroxine [Synthroid] 150 mcg PO DAILY@0600 tablet 07/12/21 12/30/21 Unknown Rx Albuterol Sulfate [Proair 90 mcg IH BID PRN 10/01/21 12/30/21 Unknown History Respiclick] Arformoterol Tartrate 15 mcg IH BID 10/01/21 12/30/21 Unknown History AtorvaSTATin [Lipitor] 20 mg PO HS 10/01/21 12/30/21 Unknown History Budesonide [Pulmicort Flexhaler] 90 mcg IH BID 10/01/21 12/30/21 Unknown History Meloxicam [Mobic] 15 mg PO DAILY 10/01/21 12/30/21 Unknown History Potassium Chloride [K-Dur] 20 meq PO QDAY 10/01/21 12/30/21 Unknown History Gabapentin [Neurontin] 800 mg PO TID 30 Days #90 10/07/21 12/30/21 Unknown Rx Melatonin [Melatonin 5MG TAB] 10 mg PO QHS tablet 10/07/21 12/30/21 Unknown Rx Mirtazapine [Remeron 15mg TAB] 7.5 mg PO QHS 30 Days #30 tablet 10/07/21 12/30/21 Unknown Rx Pantoprazole [Protonix TAB] 40 mg PO QDAY tablet 10/07/21 12/30/21 Unknown Rx QUEtiapine [SEROquel] 12.5 mg PO BID 30 Days #60 tablet 10/07/21 12/30/21 Unknown Rx Sucralfate [Carafate] 1 gm PO ACHS tablet 10/07/21 12/30/21 Unknown Rx lamoTRIgine [LaMICtal] 25 mg PO HS 30 Days #30 tablet 10/07/21 12/30/21 Unknown Rx Active Meds: Active Medications Acetaminophen (Acetaminophen 325 Mg Tab) 650 mg PO Q6H PRN PRN Reason: Pain, Mild (1-3) Last Admin: 01/01/22 21:04 Dose: 650 mg Albuterol (Albuterol 2.5 Mg/3 Ml Nebu) 2.5 mg IH Q6HRT PRN PRN Reason: Shortness Of Breath Last Admin: 01/02/22 13:46 Dose: 2.5 mg Atorvastatin Calcium (Atorvastatin 20 Mg Tab) 20 mg PO HS [facility] Last Admin: 01/02/22 21:06 Dose: 20 mg Budesonide (Budesonide 0.5 Mg/2 Ml Nebu) 0.5 mg IH Q12HRT [facility] Last Admin: 01/02/22 20:27 Dose: Not Given Escitalopram Oxalate (Escitalopram 10 Mg Tab) 5 mg PO QDAY [facility] Last Admin: 01/02/22 14:24 Dose: 5 mg Furosemide (Furosemide 40 Mg Tab) 40 mg PO QDAY [facility] Last Admin: 01/02/22 09:15 Dose: 40 mg Levothyroxine Sodium (Levothyroxine 25 Mcg Tab) 25 mcg PO DAILY@0600 [facility] Last Admin: 01/03/22 06:10 Dose: 25 mcg Levothyroxine Sodium (Levothyroxine 150 Mcg Tab) 150 mcg PO DAILY@0600 [facility] Last Admin: 01/03/22 06:10 Dose: 150 mcg Metoprolol Succinate (Metoprolol Succinate Xl 25 Mg Tab) 25 mg PO QDAY [facility] Last Admin: 01/02/22 09:15 Dose: 25 mg Montelukast Sodium (Montelukast 10 Mg Tab) 10 mg PO QPM [facility] Last Admin: 01/02/22 17:19 Dose: 10 mg Pantoprazole Sodium (Pantoprazole 40 Mg Tab) 40 mg PO QDAY [facility] Last Admin: 01/02/22 09:15 Dose: 40 mg Trazodone HCl (Trazodone 50 Mg Tab) 75 mg PO QHS [facility] Last Admin: 01/02/22 21:06 Dose: 75 mg Results - Results Labs/Vitals: Laboratory Last Values WBC 9.3 K/mm3 (4.5-11.0) 12/31/21 09:43 RBC 4.49 M/mm3 (3.65-5.03) 12/31/21 09:43 Hgb 11.4 gm/dl (10.1-14.3) 12/31/21 09:43 Hct 36.0 % (30.3-42.9) 12/31/21 09:43 MCV 80 fl (79-97) 12/31/21 09:43 MCH 26 pg (28-32) L 12/31/21 09:43 MCHC 32 % (30-34) 12/31/21 09:43 RDW 17.9 % (13.2-15.2) H 12/31/21 09:43 Plt Count 355 K/mm3 (140-440) 12/31/21 09:43 Lymph % (Auto) 12.9 % (13.4-35.0) L 12/31/21 09:43 [place] % (Auto) 12.5 % (0.0-7.3) H 12/31/21 09:43 Eos % (Auto) 4.2 % (0.0-4.3) 12/31/21 09:43 Baso % (Auto) 0.5 % (0.0-1.8) 12/31/21 09:43 Lymph # (Auto) 1.2 K/mm3 (1.2-5.4) 12/31/21 09:43 [place] # (Auto) 1.2 K/mm3 (0.0-0.8) H 12/31/21 09:43 Eos # (Auto) 0.4 K/mm3 (0.0-0.4) 12/31/21 09:43 Baso # (Auto) 0.0 K/mm3 (0.0-0.1) 12/31/21 09:43 Seg Neutrophils % 69.9 % (40.0-70.0) 12/31/21 09:43 Seg Neutrophils # 6.5 K/mm3 (1.8-7.7) 12/31/21 09:43 Sodium 139 mmol/L (137-145) 12/31/21 09:43 Potassium 3.8 mmol/L (3.6-5.0) 12/31/21 09:43 Chloride 100.1 mmol/L (98-107) 12/31/21 09:43 Carbon Dioxide 29 mmol/L (22-30) 12/31/21 09:43 Anion Gap 14 mmol/L 12/31/21 09:43 BUN 15 mg/dL (7-17) 12/31/21 09:43 Creatinine 0.7 mg/dL (0.6-1.2) 12/31/21 09:43 Estimated GFR > 60 ml/min 12/31/21 09:43 BUN/Creatinine Ratio 21 % 12/31/21 09:43 Glucose 80 mg/dL (65-100) 12/31/21 09:43 Hemoglobin A1c 5.7 % (4-6) 12/31/21 09:43 Calcium 9.4 mg/dL (8.4-10.2) 12/31/21 09:43 Total Bilirubin 0.40 mg/dL (0.1-1.2) 12/31/21 09:43 AST 10 units/L (5-40) 12/31/21 09:43 ALT 7 units/L (7-56) 12/31/21 09:43 Alkaline Phosphatase 104 units/L (35-129) 12/31/21 09:43 Total Protein 7.8 g/dL (6.3-8.2) 12/31/21 09:43 Albumin 3.7 g/dL (3.9-5) L 12/31/21 09:43 Albumin/Globulin Ratio 0.9 % 12/31/21 09:43 Triglycerides 113 mg/dL (2-149) 12/31/21 09:43 Cholesterol 129 mg/dL (50-199) 12/31/21 09:43 LDL Cholesterol Direct 64 mg/dL (50-130) 12/31/21 09:43 HDL Cholesterol 46 mg/dL (40-59) 12/31/21 09:43 Cholesterol/HDL Ratio 2.80 % 12/31/21 09:43 TSH 2.250 mlU/mL (0.270-4.200) 12/31/21 09:43 Last Vital Signs Temp 97.6 F 01/03/22 07:11 Pulse 88 01/03/22 07:11 Resp 20 01/03/22 07:11 BP 123/70 01/03/22 07:11 Pulse Ox 97 01/03/22 07:11
[2022-01-03] MEDS: PANTOPRAZOLE 40 MG TAB PO SCH ×2 (08:46→10:22)
[2022-01-03] MEDS: ESCITALOPRAM 10 MG TAB PO SCH ×2 (08:46→10:23)
[2022-01-03] MEDS: METOPROLOL SUCCINATE XL 25 MG TAB PO SCH ×2 (08:47→10:22)
[2022-01-03] MEDS: FUROSEMIDE 40 MG TAB PO SCH (10:22)
[2022-01-03] MEDS: ALBUTEROL 2.5 MG/3 ML NEBU IH PRN (14:54)
[2022-01-03] MEDS: BUDESONIDE 0.5 MG/2 ML NEBU IH SCH (14:54)
[2022-01-03] MEDS: MONTELUKAST 10 MG TAB PO SCH (17:51)
[2022-01-03] MEDS: traZODone 50 MG TAB PO SCH (21:00)
[2022-01-03] MEDS: ACETAMINOPHEN 325 MG TAB PO PRN (21:01)
[2022-01-04] MEDS: BUDESONIDE 0.5 MG/2 ML NEBU IH SCH ×3 (01:06→21:02)
[2022-01-04] MEDS: LEVOTHYROXINE 150 MCG TAB PO SCH (05:57)
[2022-01-04] MEDS: LEVOTHYROXINE 25 MCG TAB PO SCH (05:57)
[2022-01-04] MEDS: ALBUTEROL 2.5 MG/3 ML NEBU IH PRN (09:01)
[2022-01-04] MEDS: ESCITALOPRAM 10 MG TAB PO SCH (09:46)
[2022-01-04] MEDS: FUROSEMIDE 40 MG TAB PO SCH (09:46)
[2022-01-04] MEDS: METOPROLOL SUCCINATE XL 25 MG TAB PO SCH (09:47)
[2022-01-04] MEDS: PANTOPRAZOLE 40 MG TAB PO SCH (09:48)
[2022-01-04] MEDS: ACETAMINOPHEN 325 MG TAB PO PRN (11:21)
--- NOTE | 2022-01-04 12:49 | Progress Note ---
Subjective Date of service: 01/04/22 Principal diagnosis: MDD Subjective Comment: The patient was seen today. She says she feels okay. She denies SI/HI or hallucinations of any kind. REVIEW OF SYSTEMS Constitutional: Negative for weight loss ENT: Negative for stridor Respiratory: Negative for cough or hemoptysis All other systems reviewed and are negative MENTAL STATUS EXAMINATION General Appearance and Behavior: Age appropriate, good hygiene, wearing appropriate clothes. calm, cooperative Cooperation: Cooperative Psychomotor Behavior: Psychomotor normal Mood: depressed Affect and affective range: congruent with stated mood Thought Process: goal directed Thought Content: Reality oriented Speech: Normal tone and pace Suicidal Ideation: Denies Homicidal Ideation: Denies Hallucinations: Denies Delusions: none elicited Impulse Control: Limited Insight and Judgment: poor insight and judgment Memory: Limited Attention: distracted Orientation: a/o Assessment (1)Schizoaffective disorder Current Visit: Yes Status: Acute Treatment Plan Patient admitted for inpatient psychiatric evaluation, medication adjustment and close monitoring The patient's behavior, mood, sleep and appetite will be closely monitored. Patient enrolled in individual and group therapeutic sessions and encouraged to attend. Patient provided with a safe and structured environment. Patient's physical health needs will be addressed by the Hospitalist. Hospitalist Consulted Labs including CBC, CMP, Lipid profile and Hemoglobin A1C levels ordered for baseline reference Social Assessment will be completed and the Foreign Student Adviser Teacher will work with patient and family to ensure a suitable and safe disposition Medication adjustment will be made as clinically indicated Lexapro 5mg po daily Usual Wellness Scientology/Preservation: - Start Trazodone 50 mg po QHS & 50 mg po QHS PRN between 10 PM & 2 AM for insomnia - Start Melatonin 5 mg po QHS to promote circadian rhythm The patient agreed on the treatment plan, understood the risk, benefit, alternative treatment, potential consequence of no treatment, and gave informed consent. Estimated days: 7 Post hospital care: primary care provider, psychiatric provider Case staffed with Dr. Bañuelos Medications and Allergies Allergies Allergy/AdvReac Type Severity Reaction Status Date / Time fluphenazine [From Prolixin] Allergy Intermediate Rash Verified 10/01/21 04:46 haloperidol [From Haldol] Allergy Intermediate Swelling Verified 10/01/21 04:46 Iodinated Contrast Media Allergy Intermediate Rash Verified 10/01/21 04:46 [Iodinated Contrast- Oral and IV Dye] Sulfa (Sulfonamide Allergy Intermediate Rash Verified 10/01/21 04:46 Antibiotics) sulfamethoxazole Allergy Intermediate WELTS Verified 10/01/21 04:45 Home Medications Medication Instructions Recorded Confirmed Last Taken Type Metoprolol Xl [Metoprolol 25 mg PO QDAY #30 tablet 12/04/18 12/30/21 Unknown Rx SUCCINATE ER TAB] Montelukast [Singulair] 10 mg PO QPM #30 tablet 12/04/18 12/30/21 Unknown Rx Acetaminophen [Acetaminophen TAB] 650 mg PO Q6H PRN tablet 07/12/21 12/30/21 Unknown Rx Furosemide [Lasix TAB] 40 mg PO QDAY tablet 07/12/21 12/30/21 Unknown Rx Levothyroxine [Synthroid] 25 mcg PO DAILY@0600 tablet 07/12/21 12/30/21 Unknown Rx Levothyroxine [Synthroid] 150 mcg PO DAILY@0600 tablet 07/12/21 12/30/21 Unknown Rx Albuterol Sulfate [Proair 90 mcg IH BID PRN 10/01/21 12/30/21 Unknown History Respiclick] Arformoterol Tartrate 15 mcg IH BID 10/01/21 12/30/21 Unknown History AtorvaSTATin [Lipitor] 20 mg PO HS 10/01/21 12/30/21 Unknown History Budesonide [Pulmicort Flexhaler] 90 mcg IH BID 10/01/21 12/30/21 Unknown History Meloxicam [Mobic] 15 mg PO DAILY 10/01/21 12/30/21 Unknown History Potassium Chloride [K-Dur] 20 meq PO QDAY 10/01/21 12/30/21 Unknown History Gabapentin [Neurontin] 800 mg PO TID 30 Days #90 10/07/21 12/30/21 Unknown Rx Melatonin [Melatonin 5MG TAB] 10 mg PO QHS tablet 10/07/21 12/30/21 Unknown Rx Mirtazapine [Remeron 15mg TAB] 7.5 mg PO QHS 30 Days #30 tablet 10/07/21 12/30/21 Unknown Rx Pantoprazole [Protonix TAB] 40 mg PO QDAY tablet 10/07/21 12/30/21 Unknown Rx QUEtiapine [SEROquel] 12.5 mg PO BID 30 Days #60 tablet 10/07/21 12/30/21 Unknown Rx Sucralfate [Carafate] 1 gm PO ACHS tablet 10/07/21 12/30/21 Unknown Rx lamoTRIgine [LaMICtal] 25 mg PO HS 30 Days #30 tablet 10/07/21 12/30/21 Unknown Rx Active Meds: Active Medications Acetaminophen (Acetaminophen 325 Mg Tab) 650 mg PO Q6H PRN PRN Reason: Pain, Mild (1-3) Last Admin: 01/04/22 11:21 Dose: 650 mg Albuterol (Albuterol 2.5 Mg/3 Ml Nebu) 2.5 mg IH Q6HRT PRN PRN Reason: Shortness Of Breath Last Admin: 01/04/22 09:01 Dose: 2.5 mg Atorvastatin Calcium (Atorvastatin 20 Mg Tab) [address] [facility] Last Admin: 01/03/22 21:01 Dose: 20 mg Budesonide (Budesonide 0.5 Mg/2 Ml Nebu) 0.5 mg IH Q12HRT [facility] Last Admin: 01/04/22 09:01 Dose: 0.5 mg Escitalopram Oxalate (Escitalopram 10 Mg Tab) 5 mg PO QDAY [facility] Last Admin: 01/04/22 09:46 Dose: 5 mg Furosemide (Furosemide 40 Mg Tab) 40 mg PO QDAY [facility] Last Admin: 01/04/22 09:46 Dose: Not Given Levothyroxine Sodium (Levothyroxine 25 Mcg Tab) 25 mcg PO DAILY@0600 [facility] Last Admin: 01/04/22 05:57 Dose: 25 mcg Levothyroxine Sodium (Levothyroxine 150 Mcg Tab) 150 mcg PO DAILY@0600 [facility] Last Admin: 01/04/22 05:57 Dose: 150 mcg Metoprolol Succinate (Metoprolol Succinate Xl 25 Mg Tab) 25 mg PO QDAY [facility] Last Admin: 01/04/22 09:47 Dose: 25 mg Montelukast Sodium (Montelukast 10 Mg Tab) 10 mg PO QPM [facility] Last Admin: 01/03/22 17:51 Dose: 10 mg Pantoprazole Sodium (Pantoprazole 40 Mg Tab) 40 mg PO QDAY [facility] Last Admin: 01/04/22 09:48 Dose: 40 mg Trazodone HCl (Trazodone 50 Mg Tab) 75 mg PO QHS [facility] Last Admin: 01/03/22 21:00 Dose: 75 mg Results - Results Labs/Vitals: Laboratory Last Values WBC 9.3 K/mm3 (4.5-11.0) 12/31/21 09:43 RBC 4.49 M/mm3 (3.65-5.03) 12/31/21 09:43 Hgb 11.4 gm/dl (10.1-14.3) 12/31/21 09:43 Hct 36.0 % (30.3-42.9) 12/31/21 09:43 MCV 80 fl (79-97) 12/31/21 09:43 MCH 26 pg (28-32) L 12/31/21 09:43 MCHC 32 % (30-34) 12/31/21 09:43 RDW 17.9 % (13.2-15.2) H 12/31/21 09:43 Plt Count 355 K/mm3 (140-440) 12/31/21 09:43 Lymph % (Auto) 12.9 % (13.4-35.0) L 12/31/21 09:43 [place] % (Auto) 12.5 % (0.0-7.3) H 12/31/21 09:43 Eos % (Auto) 4.2 % (0.0-4.3) 12/31/21 09:43 Baso % (Auto) 0.5 % (0.0-1.8) 12/31/21 09:43 Lymph # (Auto) 1.2 K/mm3 (1.2-5.4) 12/31/21 09:43 [place] # (Auto) 1.2 K/mm3 (0.0-0.8) H 12/31/21 09:43 Eos # (Auto) 0.4 K/mm3 (0.0-0.4) 12/31/21 09:43 Baso # (Auto) 0.0 K/mm3 (0.0-0.1) 12/31/21 09:43 Seg Neutrophils % 69.9 % (40.0-70.0) 12/31/21 09:43 Seg Neutrophils # 6.5 K/mm3 (1.8-7.7) 12/31/21 09:43 Sodium 139 mmol/L (137-145) 12/31/21 09:43 Potassium 3.8 mmol/L (3.6-5.0) 12/31/21 09:43 Chloride 100.1 mmol/L (98-107) 12/31/21 09:43 Carbon Dioxide 29 mmol/L (22-30) 12/31/21 09:43 Anion Gap 14 mmol/L 12/31/21 09:43 BUN 15 mg/dL (7-17) 12/31/21 09:43 Creatinine 0.7 mg/dL (0.6-1.2) 12/31/21 09:43 Estimated GFR > 60 ml/min 12/31/21 09:43 BUN/Creatinine Ratio 21 % 12/31/21 09:43 Glucose 80 mg/dL (65-100) 12/31/21 09:43 Hemoglobin A1c 5.7 % (4-6) 12/31/21 09:43 Calcium 9.4 mg/dL (8.4-10.2) 12/31/21 09:43 Total Bilirubin 0.40 mg/dL (0.1-1.2) 12/31/21 09:43 AST 10 units/L (5-40) 12/31/21 09:43 ALT 7 units/L (7-56) 12/31/21 09:43 Alkaline Phosphatase 104 units/L (35-129) 12/31/21 09:43 Total Protein 7.8 g/dL (6.3-8.2) 12/31/21 09:43 Albumin 3.7 g/dL (3.9-5) L 12/31/21 09:43 Albumin/Globulin Ratio 0.9 % 12/31/21 09:43 Triglycerides 113 mg/dL (2-149) 12/31/21 09:43 Cholesterol 129 mg/dL (50-199) 12/31/21 09:43 LDL Cholesterol Direct 64 mg/dL (50-130) 12/31/21 09:43 HDL Cholesterol 46 mg/dL (40-59) 12/31/21 09:43 Cholesterol/HDL Ratio 2.80 % 12/31/21 09:43 TSH 2.250 mlU/mL (0.270-4.200) 12/31/21 09:43 Last Vital Signs Temp 97.9 F 01/04/22 07:30 Pulse 86 01/04/22 09:47 Resp 18 01/04/22 09:01 BP 145/70 01/04/22 09:47 Pulse Ox 99 01/04/22 09:01
[2022-01-04] MEDS: MONTELUKAST 10 MG TAB PO SCH (18:02)
[2022-01-04] MEDS: traZODone 50 MG TAB PO SCH (21:18)
[2022-01-05] MEDS: LEVOTHYROXINE 25 MCG TAB PO SCH (05:38)
[2022-01-05] MEDS: LEVOTHYROXINE 150 MCG TAB PO SCH (05:38)
[2022-01-05] MEDS: ALBUTEROL 2.5 MG/3 ML NEBU IH PRN (08:39)
[2022-01-05] MEDS: BUDESONIDE 0.5 MG/2 ML NEBU IH SCH ×2 (08:39→19:58)
[2022-01-05] MEDS: PANTOPRAZOLE 40 MG TAB PO SCH (09:44)
[2022-01-05] MEDS: ESCITALOPRAM 10 MG TAB PO SCH (09:45)
[2022-01-05] MEDS: METOPROLOL SUCCINATE XL 25 MG TAB PO SCH (09:46)
[2022-01-05] MEDS: ACETAMINOPHEN 325 MG TAB PO PRN (09:46)
[2022-01-05] MEDS: FUROSEMIDE 40 MG TAB PO SCH (09:49)
--- NOTE | 2022-01-05 11:51 | Discharge Summary ---
Providers - Providers Date of Admission: 12/30/21 20:56 Date of discharge: 01/05/22 Attending physician: MITESH RIVERO MD 12/30/21 19:56 Consult to Physician [CONS] Routine Comment: Consulting Provider: MAYTE ALCARAZ Physician Instructions: Ps manage conditions as per H&P Reason For Exam: New admission Primary care physician: ROOF BOLTER Hospitalization Reason for admission: SI Admitting Diagnosis: F33.9 - MAJOR DEPRESSIVE DISORDER, RECURRENT, UNSPECIFIED Condition: Stable Hospital course: The patient was provided inpatient psychiatric treatment with safe and supportive care, medication adjustment, adverse effect monitoring, medical evaluations, medical treatments, assessment and psycho-education. The patient's mood, cognition, behavior, moral support are improved and stabilized. St the time of discharge, the patient had no endangering behavior and no debilitating adverse effects. The patient agreed on potential consequences of no treatment and gave informed consent. Disposition: 01 HOME / SELF CARE / HOMELESS Time spent for discharge: 35 Allergies/Adverse Reactions: Allergies fluphenazine [From Prolixin] Allergy (Intermediate, Verified 10/01/21 04:46) Rash haloperidol [From Haldol] Allergy (Intermediate, Verified 10/01/21 04:46) Swelling TONGUE SWELLING. Iodinated Contrast Media [Iodinated Contrast- Oral and IV Dye] Allergy (Intermediate, Verified 10/01/21 04:46) Rash Sulfa (Sulfonamide Antibiotics) Allergy (Intermediate, Verified 10/01/21 04:46) Rash sulfamethoxazole Allergy (Intermediate, Verified 10/01/21 04:45) WEL Vital Signs: Last Vital Signs Temp 98.1 F 01/04/22 19:27 Pulse 82 01/05/22 09:46 Resp 18 01/05/22 08:25 BP 123/64 01/05/22 09:46 Pulse Ox 100 01/05/22 08:43 Last Lab: Laboratory Last Values WBC 9.3 K/mm3 (4.5-11.0) 12/31/21 09:43 RBC 4.49 M/mm3 (3.65-5.03) 12/31/21 09:43 Hgb 11.4 gm/dl (10.1-14.3) 12/31/21 09:43 Hct 36.0 % (30.3-42.9) 12/31/21 09:43 MCV 80 fl (79-97) 12/31/21 09:43 MCH 26 pg (28-32) L 12/31/21 09:43 MCHC 32 % (30-34) 12/31/21 09:43 RDW 17.9 % (13.2-15.2) H 12/31/21 09:43 Plt Count 355 K/mm3 (140-440) 12/31/21 09:43 Lymph % (Auto) 12.9 % (13.4-35.0) L 12/31/21 09:43 [place] % (Auto) 12.5 % (0.0-7.3) H 12/31/21 09:43 Eos % (Auto) 4.2 % (0.0-4.3) 12/31/21 09:43 Baso % (Auto) 0.5 % (0.0-1.8) 12/31/21 09:43 Lymph # (Auto) 1.2 K/mm3 (1.2-5.4) 12/31/21 09:43 [place] # (Auto) 1.2 K/mm3 (0.0-0.8) H 12/31/21 09:43 Eos # (Auto) 0.4 K/mm3 (0.0-0.4) 12/31/21 09:43 Baso # (Auto) 0.0 K/mm3 (0.0-0.1) 12/31/21 09:43 Seg Neutrophils % 69.9 % (40.0-70.0) 12/31/21 09:43 Seg Neutrophils # 6.5 K/mm3 (1.8-7.7) 12/31/21 09:43 Sodium 139 mmol/L (137-145) 12/31/21 09:43 Potassium 3.8 mmol/L (3.6-5.0) 12/31/21 09:43 Chloride 100.1 mmol/L (98-107) 12/31/21 09:43 Carbon Dioxide 29 mmol/L (22-30) 12/31/21 09:43 Anion Gap 14 mmol/L 12/31/21 09:43 BUN 15 mg/dL (7-17) 12/31/21 09:43 Creatinine 0.7 mg/dL (0.6-1.2) 12/31/21 09:43 Estimated GFR > 60 ml/min 12/31/21 09:43 BUN/Creatinine Ratio 21 % 12/31/21 09:43 Glucose 80 mg/dL (65-100) 12/31/21 09:43 Hemoglobin A1c 5.7 % (4-6) 12/31/21 09:43 Calcium 9.4 mg/dL (8.4-10.2) 12/31/21 09:43 Total Bilirubin 0.40 mg/dL (0.1-1.2) 12/31/21 09:43 AST 10 units/L (5-40) 12/31/21 09:43 ALT 7 units/L (7-56) 12/31/21 09:43 Alkaline Phosphatase 104 units/L (35-129) 12/31/21 09:43 Total Protein 7.8 g/dL (6.3-8.2) 12/31/21 09:43 Albumin 3.7 g/dL (3.9-5) L 12/31/21 09:43 Albumin/Globulin Ratio 0.9 % 12/31/21 09:43 Triglycerides 113 mg/dL (2-149) 12/31/21 09:43 Cholesterol 129 mg/dL (50-199) 12/31/21 09:43 LDL Cholesterol Direct 64 mg/dL (50-130) 12/31/21 09:43 HDL Cholesterol 46 mg/dL (40-59) 12/31/21 09:43 Cholesterol/HDL Ratio 2.80 % 12/31/21 09:43 TSH 2.250 mlU/mL (0.270-4.200) 12/31/21 09:43 Core Measure Documentation - Palliative Care Palliative Care/ Comfort Measures: Not Applicable - Core Measures Any of the following diagnoses?: none Exam - Constitutional Vitals: Temp Pulse Resp BP Pulse Ox 98.1 F 82 18 123/64 100 01/04/22 19:27 01/05/22 09:46 01/05/22 08:25 01/05/22 09:46 01/05/22 08:43 General appearance: Present: no acute distress - EENT Eyes: Present: PERRL, EOM intact ENT: hearing intact, clear oral mucosa - Neck Neck: Present: supple, normal ROM - Respiratory Respiratory effort: normal Plan Activity: advance as tolerated Weight Bearing Status: Weight Bear as Tolerated Care Plan Goals: Maintain good and stable mental health Plan of Treatment: The patient should be compliant with medications, not to use drugs, and not to drink alcohol. The patient understands that if suicidal ideas, homicidal ideas or any endangering feeling arise, the patient should seek assistance including, but not limited to crisis hotline, and emergency room. Assessment: MDD Follow up with: PRIMARY CARE, [Primary Care Provider] - 7 Days Prescriptions: traZODone [Desyrel] 75 mg PO QHS #45 tablet Mirtazapine [Remeron 15mg TAB] 7.5 mg PO QHS 30 Days #30 tablet Escitalopram [Lexapro] 5 mg PO QDAY #15 tablet
--- NOTE | 2022-01-05 14:42 | Progress Note ---
Subjective Date of service: 01/05/22 Principal diagnosis: MDD Subjective Comment: The patient was seen today. She says she feels fine and is ready to go home. She denies SI/HI or hallucinations of any kind. She was cleared for discharge today, but transportation can't pick the patient up until Wednesday, per SW. REVIEW OF SYSTEMS Constitutional: Negative for weight loss ENT: Negative for stridor Respiratory: Negative for cough or hemoptysis All other systems reviewed and are negative MENTAL STATUS EXAMINATION General Appearance and Behavior: Age appropriate, good hygiene, wearing appropriate clothes. calm, cooperative Cooperation: Cooperative Psychomotor Behavior: Psychomotor normal Mood: depressed Affect and affective range: congruent with stated mood Thought Process: goal directed Thought Content: Reality oriented Speech: Normal tone and pace Suicidal Ideation: Denies Homicidal Ideation: Denies Hallucinations: Denies Delusions: none elicited Impulse Control: Limited Insight and Judgment: poor insight and judgment Memory: Limited Attention: distracted Orientation: a/o Assessment (1)Schizoaffective disorder Current Visit: Yes Status: Acute Treatment Plan Patient admitted for inpatient psychiatric evaluation, medication adjustment and close monitoring The patient's behavior, mood, sleep and appetite will be closely monitored. Patient enrolled in individual and group therapeutic sessions and encouraged to attend. Patient provided with a safe and structured environment. Patient's physical health needs will be addressed by the Hospitalist. Hospitalist Consulted Labs including CBC, CMP, Lipid profile and Hemoglobin A1C levels ordered for baseline reference Social Assessment will be completed and the Wafer Fabricator will work with patient and family to ensure a suitable and safe disposition Medication adjustment will be made as clinically indicated Lexapro 5mg po daily Usual Wellness Sikh/Preservation: - Start Trazodone 50 mg po QHS & 50 mg po QHS PRN between 10 PM & 2 AM for insomnia - Start Melatonin 5 mg po QHS to promote circadian rhythm The patient agreed on the treatment plan, understood the risk, benefit, alternative treatment, potential consequence of no treatment, and gave informed consent. Estimated days: 7 Post hospital care: primary care provider, psychiatric provider Case staffed with Dr. Bañuelos Medications and Allergies Allergies Allergy/AdvReac Type Severity Reaction Status Date / Time fluphenazine [From Prolixin] Allergy Intermediate Rash Verified 10/01/21 04:46 haloperidol [From Haldol] Allergy Intermediate Swelling Verified 10/01/21 04:46 Iodinated Contrast Media Allergy Intermediate Rash Verified 10/01/21 04:46 [Iodinated Contrast- Oral and IV Dye] Sulfa (Sulfonamide Allergy Intermediate Rash Verified 10/01/21 04:46 Antibiotics) sulfamethoxazole Allergy Intermediate WELTS Verified 10/01/21 04:45 Home Medications Medication Instructions Recorded Confirmed Last Taken Type Metoprolol Xl [Metoprolol 25 mg PO QDAY #30 tablet 12/04/18 12/30/21 Unknown Rx SUCCINATE ER TAB] Montelukast [Singulair] 10 mg PO QPM #30 tablet 12/04/18 12/30/21 Unknown Rx Acetaminophen [Acetaminophen TAB] 650 mg PO Q6H PRN tablet 07/12/21 12/30/21 Unknown Rx Furosemide [Lasix TAB] 40 mg PO QDAY tablet 07/12/21 12/30/21 Unknown Rx Levothyroxine [Synthroid] 25 mcg PO DAILY@0600 tablet 07/12/21 12/30/21 Unknown Rx Levothyroxine [Synthroid] 150 mcg PO DAILY@0600 tablet 07/12/21 12/30/21 Unknown Rx Albuterol Sulfate [Proair 90 mcg IH BID PRN 10/01/21 12/30/21 Unknown History Respiclick] Arformoterol Tartrate 15 mcg IH BID 10/01/21 12/30/21 Unknown History AtorvaSTATin [Lipitor] 20 mg PO HS 10/01/21 12/30/21 Unknown History Budesonide [Pulmicort Flexhaler] 90 mcg IH BID 10/01/21 12/30/21 Unknown History Meloxicam [Mobic] 15 mg PO DAILY 10/01/21 12/30/21 Unknown History Potassium Chloride [K-Dur] 20 meq PO QDAY 10/01/21 12/30/21 Unknown History Gabapentin [Neurontin] 800 mg PO TID 30 Days #90 10/07/21 12/30/21 Unknown Rx Melatonin [Melatonin 5MG TAB] 10 mg PO QHS tablet 10/07/21 12/30/21 Unknown Rx Pantoprazole [Protonix TAB] 40 mg PO QDAY tablet 10/07/21 12/30/21 Unknown Rx Sucralfate [Carafate] 1 gm PO ACHS tablet 10/07/21 12/30/21 Unknown Rx lamoTRIgine [LaMICtal] 25 mg PO HS 30 Days #30 tablet 10/07/21 12/30/21 Unknown Rx Escitalopram [Lexapro] 5 mg PO QDAY #15 tablet 01/05/22 Unknown Rx Mirtazapine [Remeron 15mg TAB] 7.5 mg PO QHS 30 Days #30 tablet 01/05/22 Unknown Rx traZODone [Desyrel] 75 mg PO QHS #45 tablet 01/05/22 Unknown Rx Active Meds: Active Medications Acetaminophen (Acetaminophen 325 Mg Tab) 650 mg PO Q6H PRN PRN Reason: Pain, Mild (1-3) Last Admin: 01/05/22 09:46 Dose: 650 mg Albuterol (Albuterol 2.5 Mg/3 Ml Nebu) 2.5 mg IH Q6HRT PRN PRN Reason: Shortness Of Breath Last Admin: 01/05/22 08:39 Dose: 2.5 mg Atorvastatin Calcium (Atorvastatin 20 Mg Tab) 20 mg PO HS [facility] Last Admin: 01/04/22 21:19 Dose: 20 mg Budesonide (Budesonide 0.5 Mg/2 Ml Nebu) 0.5 mg IH Q12HRT [facility] Last Admin: 01/05/22 08:39 Dose: 0.5 mg Escitalopram Oxalate (Escitalopram 10 Mg Tab) 5 mg PO QDAY [facility] Last Admin: 01/05/22 09:45 Dose: 5 mg Furosemide (Furosemide 40 Mg Tab) 40 mg PO QDAY [facility] Last Admin: 01/05/22 09:49 Dose: Not Given Levothyroxine Sodium (Levothyroxine 25 Mcg Tab) 25 mcg PO DAILY@0600 [facility] Last Admin: 01/05/22 05:38 Dose: 25 mcg Levothyroxine Sodium (Levothyroxine 150 Mcg Tab) 150 mcg PO DAILY@0600 [facility] Last Admin: 01/05/22 05:38 Dose: 150 mcg Metoprolol Succinate (Metoprolol Succinate Xl 25 Mg Tab) 25 mg PO QDAY [facility] Last Admin: 01/05/22 09:46 Dose: 25 mg Montelukast Sodium (Montelukast 10 Mg Tab) 10 mg PO QPM [facility] Last Admin: 01/04/22 18:02 Dose: 10 mg Pantoprazole Sodium (Pantoprazole 40 Mg Tab) 40 mg PO QDAY [facility] Last Admin: 01/05/22 09:44 Dose: 40 mg Trazodone HCl (Trazodone 50 Mg Tab) 75 mg PO QHS [facility] Last Admin: 01/04/22 21:18 Dose: 75 mg Results - Results Labs/Vitals: Laboratory Last Values WBC 9.3 K/mm3 (4.5-11.0) 12/31/21 09:43 RBC 4.49 M/mm3 (3.65-5.03) 12/31/21 09:43 Hgb 11.4 gm/dl (10.1-14.3) 12/31/21 09:43 Hct 36.0 % (30.3-42.9) 12/31/21 09:43 MCV 80 fl (79-97) 12/31/21 09:43 MCH 26 pg (28-32) L 12/31/21 09:43 MCHC 32 % (30-34) 12/31/21 09:43 RDW 17.9 % (13.2-15.2) H 12/31/21 09:43 Plt Count 355 K/mm3 (140-440) 12/31/21 09:43 Lymph % (Auto) 12.9 % (13.4-35.0) L 12/31/21 09:43 [place] % (Auto) 12.5 % (0.0-7.3) H 12/31/21 09:43 Eos % (Auto) 4.2 % (0.0-4.3) 12/31/21 09:43 Baso % (Auto) 0.5 % (0.0-1.8) 12/31/21 09:43 Lymph # (Auto) 1.2 K/mm3 (1.2-5.4) 12/31/21 09:43 [place] # (Auto) 1.2 K/mm3 (0.0-0.8) H 12/31/21 09:43 Eos # (Auto) 0.4 K/mm3 (0.0-0.4) 12/31/21 09:43 Baso # (Auto) 0.0 K/mm3 (0.0-0.1) 12/31/21 09:43 Seg Neutrophils % 69.9 % (40.0-70.0) 12/31/21 09:43 Seg Neutrophils # 6.5 K/mm3 (1.8-7.7) 12/31/21 09:43 Sodium 139 mmol/L (137-145) 12/31/21 09:43 Potassium 3.8 mmol/L (3.6-5.0) 12/31/21 09:43 Chloride 100.1 mmol/L (98-107) 12/31/21 09:43 Carbon Dioxide 29 mmol/L (22-30) 12/31/21 09:43 Anion Gap 14 mmol/L 12/31/21 09:43 BUN 15 mg/dL (7-17) 12/31/21 09:43 Creatinine 0.7 mg/dL (0.6-1.2) 12/31/21 09:43 Estimated GFR > 60 ml/min 12/31/21 09:43 BUN/Creatinine Ratio 21 % 12/31/21 09:43 Glucose 80 mg/dL (65-100) 12/31/21 09:43 Hemoglobin A1c 5.7 % (4-6) 12/31/21 09:43 Calcium 9.4 mg/dL (8.4-10.2) 12/31/21 09:43 Total Bilirubin 0.40 mg/dL (0.1-1.2) 12/31/21 09:43 AST 10 units/L (5-40) 12/31/21 09:43 ALT 7 units/L (7-56) 12/31/21 09:43 Alkaline Phosphatase 104 units/L (35-129) 12/31/21 09:43 Total Protein 7.8 g/dL (6.3-8.2) 12/31/21 09:43 Albumin 3.7 g/dL (3.9-5) L 12/31/21 09:43 Albumin/Globulin Ratio 0.9 % 12/31/21 09:43 Triglycerides 113 mg/dL (2-149) 12/31/21 09:43 Cholesterol 129 mg/dL (50-199) 12/31/21 09:43 LDL Cholesterol Direct 64 mg/dL (50-130) 12/31/21 09:43 HDL Cholesterol 46 mg/dL (40-59) 12/31/21 09:43 Cholesterol/HDL Ratio 2.80 % 12/31/21 09:43 TSH 2.250 mlU/mL (0.270-4.200) 12/31/21 09:43 Last Vital Signs Temp 98.1 F 01/04/22 19:27 Pulse 82 01/05/22 09:46 Resp 18 01/05/22 08:25 BP 123/64 01/05/22 09:46 Pulse Ox 100 01/05/22 08:43
[2022-01-05] MEDS: MONTELUKAST 10 MG TAB PO SCH (17:49)
[2022-01-05] MEDS: traZODone 50 MG TAB PO SCH (21:08)
[2022-01-06] MEDS: LEVOTHYROXINE 25 MCG TAB PO SCH (06:05)
[2022-01-06] MEDS: LEVOTHYROXINE 150 MCG TAB PO SCH (06:05)
[2022-01-06] MEDS: BUDESONIDE 0.5 MG/2 ML NEBU IH SCH ×2 (09:23→21:37)
[2022-01-06] MEDS: ESCITALOPRAM 10 MG TAB PO SCH (10:15)
[2022-01-06] MEDS: FUROSEMIDE 40 MG TAB PO SCH ×2 (10:15→10:18)
[2022-01-06] MEDS: METOPROLOL SUCCINATE XL 25 MG TAB PO SCH (10:16)
[2022-01-06] MEDS: PANTOPRAZOLE 40 MG TAB PO SCH (10:17)
--- NOTE | 2022-01-06 11:13 | Progress Note ---
Subjective Date of service: 01/06/22 Principal diagnosis: MDD Subjective Comment: The patient was seen today. She says she feels good. She denies SI/HI or hallucinations of any kind. The patient is clear from psych and will discharge tomorrow now that transportation is set up. REVIEW OF SYSTEMS Constitutional: Negative for weight loss ENT: Negative for stridor Respiratory: Negative for cough or hemoptysis All other systems reviewed and are negative MENTAL STATUS EXAMINATION General Appearance and Behavior: Age appropriate, good hygiene, wearing appropriate clothes. calm, cooperative Cooperation: Cooperative Psychomotor Behavior: Psychomotor normal Mood: depressed Affect and affective range: congruent with stated mood Thought Process: goal directed Thought Content: Reality oriented Speech: Normal tone and pace Suicidal Ideation: Denies Homicidal Ideation: Denies Hallucinations: Denies Delusions: none elicited Impulse Control: Limited Insight and Judgment: poor insight and judgment Memory: Limited Attention: distracted Orientation: a/o Assessment (1)Schizoaffective disorder Current Visit: Yes Status: Acute Treatment Plan Patient admitted for inpatient psychiatric evaluation, medication adjustment and close monitoring The patient's behavior, mood, sleep and appetite will be closely monitored. Patient enrolled in individual and group therapeutic sessions and encouraged to attend. Patient provided with a safe and structured environment. Patient's physical health needs will be addressed by the Hospitalist. Hospitalist Consulted Labs including CBC, CMP, Lipid profile and Hemoglobin A1C levels ordered for baseline reference Social Assessment will be completed and the Die Cleaner will work with patient and family to ensure a suitable and safe disposition Medication adjustment will be made as clinically indicated Lexapro 5mg po daily Usual Wellness Gnosticist/Preservation: - Start Trazodone 50 mg po QHS & 50 mg po QHS PRN between 10 PM & 2 AM for insomnia - Start Melatonin 5 mg po QHS to promote circadian rhythm The patient agreed on the treatment plan, understood the risk, benefit, alternative treatment, potential consequence of no treatment, and gave informed consent. Estimated days: 7 Post hospital care: primary care provider, psychiatric provider Case staffed with Dr. Bañuelos Medications and Allergies Allergies Allergy/AdvReac Type Severity Reaction Status Date / Time fluphenazine [From Prolixin] Allergy Intermediate Rash Verified 10/01/21 04:46 haloperidol [From Haldol] Allergy Intermediate Swelling Verified 10/01/21 04:46 Iodinated Contrast Media Allergy Intermediate Rash Verified 10/01/21 04:46 [Iodinated Contrast- Oral and IV Dye] Sulfa (Sulfonamide Allergy Intermediate Rash Verified 10/01/21 04:46 Antibiotics) sulfamethoxazole Allergy Intermediate WELTS Verified 10/01/21 04:45 Home Medications Medication Instructions Recorded Confirmed Last Taken Type Metoprolol Xl [Metoprolol 25 mg PO QDAY #30 tablet 12/04/18 12/30/21 Unknown Rx SUCCINATE ER TAB] Montelukast [Singulair] 10 mg PO QPM #30 tablet 12/04/18 12/30/21 Unknown Rx Acetaminophen [Acetaminophen TAB] 650 mg PO Q6H PRN tablet 07/12/21 12/30/21 Unknown Rx Furosemide [Lasix TAB] 40 mg PO QDAY tablet 07/12/21 12/30/21 Unknown Rx Levothyroxine [Synthroid] 25 mcg PO DAILY@0600 tablet 07/12/21 12/30/21 Unknown Rx Levothyroxine [Synthroid] 150 mcg PO DAILY@0600 tablet 07/12/21 12/30/21 Unknown Rx Albuterol Sulfate [Proair 90 mcg IH BID PRN 10/01/21 12/30/21 Unknown History Respiclick] Arformoterol Tartrate 15 mcg IH BID 10/01/21 12/30/21 Unknown History AtorvaSTATin [Lipitor] 20 mg PO HS 10/01/21 12/30/21 Unknown History Budesonide [Pulmicort Flexhaler] 90 mcg IH BID 10/01/21 12/30/21 Unknown History Meloxicam [Mobic] 15 mg PO DAILY 10/01/21 12/30/21 Unknown History Potassium Chloride [K-Dur] 20 meq PO QDAY 10/01/21 12/30/21 Unknown History Gabapentin [Neurontin] 800 mg PO TID 30 Days #90 10/07/21 12/30/21 Unknown Rx Melatonin [Melatonin 5MG TAB] 10 mg PO QHS tablet 10/07/21 12/30/21 Unknown Rx Pantoprazole [Protonix TAB] 40 mg PO QDAY tablet 10/07/21 12/30/21 Unknown Rx Sucralfate [Carafate] 1 gm PO ACHS tablet 10/07/21 12/30/21 Unknown Rx lamoTRIgine [LaMICtal] 25 mg PO HS 30 Days #30 tablet 10/07/21 12/30/21 Unknown Rx Escitalopram [Lexapro] 5 mg PO QDAY #15 tablet 01/05/22 Unknown Rx Mirtazapine [Remeron 15mg TAB] 7.5 mg PO QHS 30 Days #30 tablet 01/05/22 Unknown Rx traZODone [Desyrel] 75 mg PO QHS #45 tablet 01/05/22 Unknown Rx Active Meds: Active Medications Acetaminophen (Acetaminophen 325 Mg Tab) 650 mg PO Q6H PRN PRN Reason: Pain, Mild (1-3) Last Admin: 01/05/22 09:46 Dose: 650 mg Albuterol (Albuterol 2.5 Mg/3 Ml Nebu) 2.5 mg IH Q6HRT PRN PRN Reason: Shortness Of Breath Last Admin: 01/05/22 08:39 Dose: 2.5 mg Atorvastatin Calcium (Atorvastatin 20 Mg Tab) 20 mg PO [facility] Last Admin: 01/05/22 21:08 Dose: 20 mg Budesonide (Budesonide 0.5 Mg/2 Ml Nebu) 0.5 mg IH Q12HRT [facility] Last Admin: 01/06/22 09:23 Dose: 0.5 mg Escitalopram Oxalate (Escitalopram 10 Mg Tab) 5 mg PO QDAY [facility] Last Admin: 01/06/22 10:15 Dose: 5 mg Furosemide (Furosemide 40 Mg Tab) 40 mg PO QDAY [facility] Last Admin: 01/06/22 10:18 Dose: Not Given Levothyroxine Sodium (Levothyroxine 25 Mcg Tab) 25 mcg PO DAILY@0600 [facility] Last Admin: 01/06/22 06:05 Dose: 25 mcg Levothyroxine Sodium (Levothyroxine 150 Mcg Tab) 150 mcg PO DAILY@0600 [facility] Last Admin: 01/06/22 06:05 Dose: 150 mcg Metoprolol Succinate (Metoprolol Succinate Xl 25 Mg Tab) 25 mg PO QDAY [facility] Last Admin: 01/06/22 10:16 Dose: 25 mg Montelukast Sodium (Montelukast 10 Mg Tab) 10 mg PO QPM [facility] Last Admin: 01/05/22 17:49 Dose: 10 mg Pantoprazole Sodium (Pantoprazole 40 Mg Tab) 40 mg PO QDAY [facility] Last Admin: 01/06/22 10:17 Dose: 40 mg Trazodone HCl (Trazodone 50 Mg Tab) 75 mg PO QHS [facility] Last Admin: 01/05/22 21:08 Dose: 75 mg Results - Results Labs/Vitals: Laboratory Last Values WBC 9.3 K/mm3 (4.5-11.0) 12/31/21 09:43 RBC 4.49 M/mm3 (3.65-5.03) 12/31/21 09:43 Hgb 11.4 gm/dl (10.1-14.3) 12/31/21 09:43 Hct 36.0 % (30.3-42.9) 12/31/21 09:43 MCV 80 fl (79-97) 12/31/21 09:43 MCH 26 pg (28-32) L 12/31/21 09:43 MCHC 32 % (30-34) 12/31/21 09:43 RDW 17.9 % (13.2-15.2) H 12/31/21 09:43 Plt Count 355 K/mm3 (140-440) 12/31/21 09:43 Lymph % (Auto) 12.9 % (13.4-35.0) L 12/31/21 09:43 [place] % (Auto) 12.5 % (0.0-7.3) H 12/31/21 09:43 Eos % (Auto) 4.2 % (0.0-4.3) 12/31/21 09:43 Baso % (Auto) 0.5 % (0.0-1.8) 12/31/21 09:43 Lymph # (Auto) 1.2 K/mm3 (1.2-5.4) 12/31/21 09:43 [place] # (Auto) 1.2 K/mm3 (0.0-0.8) H 12/31/21 09:43 Eos # (Auto) 0.4 K/mm3 (0.0-0.4) 12/31/21 09:43 Baso # (Auto) 0.0 K/mm3 (0.0-0.1) 12/31/21 09:43 Seg Neutrophils % 69.9 % (40.0-70.0) 12/31/21 09:43 Seg Neutrophils # 6.5 K/mm3 (1.8-7.7) 12/31/21 09:43 Sodium 139 mmol/L (137-145) 12/31/21 09:43 Potassium 3.8 mmol/L (3.6-5.0) 12/31/21 09:43 Chloride 100.1 mmol/L (98-107) 12/31/21 09:43 Carbon Dioxide 29 mmol/L (22-30) 12/31/21 09:43 Anion Gap 14 mmol/L 12/31/21 09:43 BUN 15 mg/dL (7-17) 12/31/21 09:43 Creatinine 0.7 mg/dL (0.6-1.2) 12/31/21 09:43 Estimated GFR > 60 ml/min 12/31/21 09:43 BUN/Creatinine Ratio 21 % 12/31/21 09:43 Glucose 80 mg/dL (65-100) 12/31/21 09:43 Hemoglobin A1c 5.7 % (4-6) 12/31/21 09:43 Calcium 9.4 mg/dL (8.4-10.2) 12/31/21 09:43 Total Bilirubin 0.40 mg/dL (0.1-1.2) 12/31/21 09:43 AST 10 units/L (5-40) 12/31/21 09:43 ALT 7 units/L (7-56) 12/31/21 09:43 Alkaline Phosphatase 104 units/L (35-129) 12/31/21 09:43 Total Protein 7.8 g/dL (6.3-8.2) 12/31/21 09:43 Albumin 3.7 g/dL (3.9-5) L 12/31/21 09:43 Albumin/Globulin Ratio 0.9 % 12/31/21 09:43 Triglycerides 113 mg/dL (2-149) 12/31/21 09:43 Cholesterol 129 mg/dL (50-199) 12/31/21 09:43 LDL Cholesterol Direct 64 mg/dL (50-130) 12/31/21 09:43 HDL Cholesterol 46 mg/dL (40-59) 12/31/21 09:43 Cholesterol/HDL Ratio 2.80 % 12/31/21 09:43 TSH 2.250 mlU/mL (0.270-4.200) 12/31/21 09:43 Last Vital Signs Temp 98.2 F 01/06/22 10:00 Pulse 91 H 01/06/22 10:16 Resp 20 01/06/22 10:00 BP 141/42 01/06/22 10:16 Pulse Ox 100 01/06/22 10:00
--- NOTE | 2022-01-06 12:15 | Progress Note ---
Assessment and Plan - Patient Problems (1) MDD (major depressive disorder), recurrent severe, without psychosis Current Visit: No Status: Acute Plan to address problem: Continue medical management, supportive care (2) Cerebral atherosclerosis Current Visit: No Status: Acute Plan to address problem: Risk factor reduction, antiplatelet therapy as clinically indicated. (3) Hyperlipidemia Current Visit: No Status: Acute Qualifiers: Hyperlipidemia type: mixed hyperlipidemia Qualified Code(s): E78.2 - Mixed hyperlipidemia Plan to address problem: Low-cholesterol diet, statin therapy, supportive care. (4) Hypertension Current Visit: No Status: Acute Qualifiers: Hypertension type: essential hypertension Qualified Code(s): I10 - Essential (primary) hypertension Plan to address problem: Monitor blood pressure every shift, continue medical management (5) Obesity hypoventilation syndrome Current Visit: No Status: Acute Plan to address problem: Balanced diet, increase physical activity discharge, outpatient pulmonary follow-up for sleep study. (6) Paranoid schizophrenia Current Visit: No Status: Acute Plan to address problem: Continue medical management, supportive care (7) Vascular dementia with behavior disturbance Current Visit: No Status: Acute Plan to address problem: Verbal prompting, verbal redirection, benzodiazepine therapy as clinically in dicated. (8) GERD (gastroesophageal reflux disease) Current Visit: No Status: Acute Qualifiers: Esophagitis presence: without esophagitis Qualified Code(s): K21.9 - Gastro-esophageal reflux disease without esophagitis Plan to address problem: PPI therapy as clinically indicated, bland diet, supportive care. (9) Advance care planning Current Visit: No Status: Acute Plan to address problem: Disease education done, care plan discussed, diagnoses discussed, prognosis discussed, patient is full code, +30 minutes. (10) Preventative health care Current Visit: No Status: Acute Plan to address problem: Patient counseled regarding home safety, outpatient follow-up with primary care physician for all age and risk factor appropriate screening test. Patient counseled regarding weight reduction, balanced diet. +30 minutes. History Interval history: 66 YO Female with Vascular Dementia with behavioral disturbance, Cerebral Atherosclerosis, HTN, GERD, HLD, Hypothyroidism, Schizoaffective Disorder admitted to [facility] psych unit for psychiatric stabilization. Consult placed by Dr. Stafford for medical management. Patient seen and evaluated in the recreation room. Patient appears to be at baseline level of cognition and function. No reported nursing events. Hospitalist Physical - Constitutional Vitals: Temp Pulse Resp BP Pulse Ox 98.2 F 91 H 20 141/42 100 01/06/22 10:00 01/06/22 10:16 01/06/22 10:00 01/06/22 10:16 01/06/22 10:00 General appearance: Present: no acute distress, obese - EENT Eyes: Present: PERRL ENT: hearing decreased - Neck Neck: Present: supple - Respiratory Respiratory effort: normal Respiratory: bilateral: diminished - Cardiovascular Rhythm: regular Heart Sounds: Present: S1 & S2 - Extremities Extremities: no ischemia Peripheral Pulses: within normal limits - Abdominal General gastrointestinal: soft, non-tender, non-distended - Integumentary Integumentary: Present: clear, dry - Psychiatric Psychiatric: cooperative - Neurologic Neurologic: CNII-XII intact Results - Labs CBC & Chem 7: 12/31/21 09:43 12/31/21 09:43 Labs: Laboratory Last Values WBC 9.3 K/mm3 (4.5-11.0) 12/31/21 09:43 RBC 4.49 M/mm3 (3.65-5.03) 12/31/21 09:43 Hgb 11.4 gm/dl (10.1-14.3) 12/31/21 09:43 Hct 36.0 % (30.3-42.9) 12/31/21 09:43 MCV 80 fl (79-97) 12/31/21 09:43 MCH 26 pg (28-32) L 12/31/21 09:43 MCHC 32 % (30-34) 12/31/21 09:43 RDW 17.9 % (13.2-15.2) H 12/31/21 09:43 Plt Count 355 K/mm3 (140-440) 12/31/21 09:43 Lymph % (Auto) 12.9 % (13.4-35.0) L 12/31/21 09:43 [place] % (Auto) 12.5 % (0.0-7.3) H 12/31/21 09:43 Eos % (Auto) 4.2 % (0.0-4.3) 12/31/21 09:43 Baso % (Auto) 0.5 % (0.0-1.8) 12/31/21 09:43 Lymph # (Auto) 1.2 K/mm3 (1.2-5.4) 12/31/21 09:43 [place] # (Auto) 1.2 K/mm3 (0.0-0.8) H 12/31/21 09:43 Eos # (Auto) 0.4 K/mm3 (0.0-0.4) 12/31/21 09:43 Baso # (Auto) 0.0 K/mm3 (0.0-0.1) 12/31/21 09:43 Seg Neutrophils % 69.9 % (40.0-70.0) 12/31/21 09:43 Seg Neutrophils # 6.5 K/mm3 (1.8-7.7) 12/31/21 09:43 Sodium 139 mmol/L (137-145) 12/31/21 09:43 Potassium 3.8 mmol/L (3.6-5.0) 12/31/21 09:43 Chloride 100.1 mmol/L (98-107) 12/31/21 09:43 Carbon Dioxide 29 mmol/L (22-30) 12/31/21 09:43 Anion Gap 14 mmol/L 12/31/21 09:43 BUN 15 mg/dL (7-17) 12/31/21 09:43 Creatinine 0.7 mg/dL (0.6-1.2) 12/31/21 09:43 Estimated GFR > 60 ml/min 12/31/21 09:43 BUN/Creatinine Ratio 21 % 12/31/21 09:43 Glucose 80 mg/dL (65-100) 12/31/21 09:43 Hemoglobin A1c 5.7 % (4-6) 12/31/21 09:43 Calcium 9.4 mg/dL (8.4-10.2) 12/31/21 09:43 Total Bilirubin 0.40 mg/dL (0.1-1.2) 12/31/21 09:43 AST 10 units/L (5-40) 12/31/21 09:43 ALT 7 units/L (7-56) 12/31/21 09:43 Alkaline Phosphatase 104 units/L (35-129) 12/31/21 09:43 Total Protein 7.8 g/dL (6.3-8.2) 12/31/21 09:43 Albumin 3.7 g/dL (3.9-5) L 12/31/21 09:43 Albumin/Globulin Ratio 0.9 % 12/31/21 09:43 Triglycerides 113 mg/dL (2-149) 12/31/21 09:43 Cholesterol 129 mg/dL (50-199) 12/31/21 09:43 LDL Cholesterol Direct 64 mg/dL (50-130) 12/31/21 09:43 HDL Cholesterol 46 mg/dL (40-59) 12/31/21 09:43 Cholesterol/HDL Ratio 2.80 % 12/31/21 09:43 TSH 2.250 mlU/mL (0.270-4.200) 12/31/21 09:43 [place]/IV: Voiding Method Toilet Active Medications - Current Medications Current Medications: Generic Name Dose Route Start Last Admin Trade Name Freq PRN Reason Stop Dose Admin Acetaminophen 650 mg 12/31/21 10:55 01/05/22 09:46 Acetaminophen 325 Mg Tab PO 650 mg Q6H PRN Administration Pain, Mild (1-3) Albuterol 2.5 mg 12/31/21 11:13 01/05/22 08:39 Albuterol 2.5 Mg/3 Ml Nebu IH 2.5 mg Q6HRT PRN Administration Shortness Of Breath Atorvastatin Calcium 20 mg 12/31/21 22:00 01/05/22 21:08 Atorvastatin 20 Mg Tab PO 20 mg HS JUAN Administration Budesonide 0.5 mg 12/31/21 20:00 01/06/22 09:23 Budesonide 0.5 Mg/2 Ml Nebu IH 0.5 mg Q12HRT JUAN Administration Escitalopram Oxalate 5 mg 01/02/22 11:00 01/06/22 10:15 Escitalopram 10 Mg Tab PO 5 mg QDAY JUAN Administration Furosemide 40 mg 01/02/22 10:00 01/06/22 10:18 Furosemide 40 Mg Tab PO Not Given QDAY JUAN Levothyroxine Sodium 25 mcg 01/01/22 06:00 01/06/22 06:05 Levothyroxine 25 Mcg Tab PO 25 mcg DAILY@0600 JUAN Administration Levothyroxine Sodium 150 mcg 01/01/22 06:00 01/06/22 06:05 Levothyroxine 150 Mcg Tab PO 150 mcg DAILY@0600 JUAN Administration Metoprolol Succinate 25 mg 01/01/22 10:00 08/16/22 10:16 Metoprolol Succinate Xl 25 Mg Tab PO 25 mg QDAY JUAN Administration Montelukast Sodium 10 mg 12/31/21 18:00 01/05/22 17:49 Montelukast 10 Mg Tab PO 10 mg QPM JUAN Administration Pantoprazole Sodium 40 mg 12/31/21 11:00 01/06/22 10:17 Pantoprazole 40 Mg Tab PO 40 mg QDAY JUAN Administration Trazodone HCl 75 mg 01/02/22 22:00 01/05/22 21:08 Trazodone 50 Mg Tab PO 75 mg QHS JUAN Administration
[2022-01-06] MEDS ORDERED: BUTALB/ACETAMINOPHEN/CAFFEINE TAB PO PRN (15:36)
[2022-01-06] MEDS: MONTELUKAST 10 MG TAB PO SCH (18:11)
[2022-01-06] MEDS: traZODone 50 MG TAB PO SCH (22:03)
[2022-01-07] MEDS: LEVOTHYROXINE 150 MCG TAB PO SCH (06:53)
[2022-01-07] MEDS: LEVOTHYROXINE 25 MCG TAB PO SCH (06:53)
[2022-01-07 08:16] VITALS: BP 117/64
[2022-01-07] MEDS: BUDESONIDE 0.5 MG/2 ML NEBU IH SCH (08:48)
--- NOTE | 2022-01-07 08:55 | Discharge Summary ---
Providers - Providers Date of Admission: 12/30/21 20:56 Date of discharge: 01/07/22 Attending physician: MITESH RIVERO MD 12/30/21 19:56 Consult to Physician [CONS] Routine Comment: Consulting Provider: GAURI LIRIANO Physician Instructions: Ps manage conditions as per H&P Reason For Exam: New admission Primary care physician: [employer] Hospitalization Reason for admission: depression Admitting Diagnosis: F33.1 - MAJOR DEPRESSIVE DISORDER, RECURRENT, MODERATE Hospital course: The patient was provided inpatient psychiatric treatment with safe and supportive care, medication adjustment, adverse effect monitoring, medical evaluations, medical treatments, assessment and psycho-education. The patient's mood, cognition, behavior, moral support are improved and stabilized. St the time of discharge, the patient had no endangering behavior and no debilitating adverse effects. The patient agreed on potential consequences of no treatment and gave informed consent. Disposition: 01 HOME / SELF CARE / HOMELESS Time spent for discharge: 35 Allergies/Adverse Reactions: Allergies fluphenazine [From Prolixin] Allergy (Intermediate, Verified 10/01/21 04:46) Rash haloperidol [From Haldol] Allergy (Intermediate, Verified 10/01/21 04:46) Swelling TONGUE SWELLING. Iodinated Contrast Media [Iodinated Contrast- Oral and IV Dye] Allergy (Intermediate, Verified 10/01/21 04:46) Rash Sulfa (Sulfonamide Antibiotics) Allergy (Intermediate, Verified 10/01/21 04:46) Rash sulfamethoxazole Allergy (Intermediate, Verified 10/01/21 04:45) WELTS Vital Signs: Last Vital Signs Temp 97.9 F 01/07/22 07:06 Pulse 88 01/07/22 08:49 Resp 18 01/07/22 08:49 BP 117/64 01/07/22 07:06 Pulse Ox 97 01/07/22 07:06 Last Lab: Laboratory Last Values WBC 9.3 K/mm3 (4.5-11.0) 12/31/21 09:43 RBC 4.49 M/mm3 (3.65-5.03) 12/31/21 09:43 Hgb 11.4 gm/dl (10.1-14.3) 12/31/21 09:43 Hct 36.0 % (30.3-42.9) 12/31/21 09:43 MCV 80 fl (79-97) 12/31/21 09:43 MCH 26 pg (28-32) L 12/31/21 09:43 MCHC 32 % (30-34) 12/31/21 09:43 RDW 17.9 % (13.2-15.2) H 12/31/21 09:43 Plt Count 355 K/mm3 (140-440) 12/31/21 09:43 Lymph % (Auto) 12.9 % (13.4-35.0) L 12/31/21 09:43 Cannon % (Auto) 12.5 % (0.0-7.3) H 12/31/21 09:43 Eos % (Auto) 4.2 % (0.0-4.3) 12/31/21 09:43 Baso % (Auto) 0.5 % (0.0-1.8) 12/31/21 09:43 Lymph # (Auto) 1.2 K/mm3 (1.2-5.4) 12/31/21 09:43 Cannon # (Auto) 1.2 K/mm3 (0.0-0.8) H 12/31/21 09:43 Eos # (Auto) 0.4 K/mm3 (0.0-0.4) 12/31/21 09:43 Baso # (Auto) 0.0 K/mm3 (0.0-0.1) 12/31/21 09:43 Seg Neutrophils % 69.9 % (40.0-70.0) 12/31/21 09:43 Seg Neutrophils # 6.5 K/mm3 (1.8-7.7) 12/31/21 09:43 Sodium 139 mmol/L (137-145) 12/31/21 09:43 Potassium 3.8 mmol/L (3.6-5.0) 12/31/21 09:43 Chloride 100.1 mmol/L (98-107) 12/31/21 09:43 Carbon Dioxide 29 mmol/L (22-30) 12/31/21 09:43 Anion Gap 14 mmol/L 12/31/21 09:43 BUN 15 mg/dL (7-17) 12/31/21 09:43 Creatinine 0.7 mg/dL (0.6-1.2) 12/31/21 09:43 Estimated GFR > 60 ml/min 12/31/21 09:43 BUN/Creatinine Ratio 21 % 12/31/21 09:43 Glucose 80 mg/dL (65-100) 12/31/21 09:43 Hemoglobin A1c 5.7 % (4-6) 12/31/21 09:43 Calcium 9.4 mg/dL (8.4-10.2) 12/31/21 09:43 Total Bilirubin 0.40 mg/dL (0.1-1.2) 12/31/21 09:43 AST 10 units/L (5-40) 12/31/21 09:43 ALT 7 units/L (7-56) 12/31/21 09:43 Alkaline Phosphatase 104 units/L (35-129) 12/31/21 09:43 Total Protein 7.8 g/dL (6.3-8.2) 12/31/21 09:43 Albumin 3.7 g/dL (3.9-5) L 12/31/21 09:43 Albumin/Globulin Ratio 0.9 % 12/31/21 09:43 Triglycerides 113 mg/dL (2-149) 12/31/21 09:43 Cholesterol 129 mg/dL (50-199) 12/31/21 09:43 LDL Cholesterol Direct 64 mg/dL (50-130) 12/31/21 09:43 HDL Cholesterol 46 mg/dL (40-59) 12/31/21 09:43 Cholesterol/HDL Ratio 2.80 % 12/31/21 09:43 TSH 2.250 mlU/mL (0.270-4.200) 12/31/21 09:43 Core Measure Documentation - Palliative Care Palliative Care/ Comfort Measures: Not Applicable - Core Measures Any of the following diagnoses?: none Exam - Constitutional Vitals: Temp Pulse Resp BP Pulse Ox 97.9 F 88 18 117/64 97 01/07/22 07:06 01/07/22 08:49 01/07/22 08:49 01/07/22 07:06 01/07/22 07:06 General appearance: Present: no acute distress - EENT Eyes: Present: PERRL, EOM intact ENT: hearing intact, clear oral mucosa - Neck Neck: Present: supple, normal ROM - Respiratory Respiratory effort: normal Plan Activity: advance as tolerated Weight Bearing Status: Weight Bear as Tolerated Care Plan Goals: Maintain good and stable mental health Plan of Treatment: The patient should be compliant with medications, not to use drugs, and not to drink alcohol. The patient understands that if suicidal ideas, homicidal ideas or any endangering feeling arise, the patient should seek assistance including, but not limited to crisis hotline, and emergency room. Assessment: MDD Follow up with: PRIMARY CARE, [Primary Care Provider] - 7 Days Prescriptions: traZODone [Desyrel] 75 mg PO QHS #45 tablet Mirtazapine [Remeron 15mg TAB] 7.5 mg PO QHS 30 Days #30 tablet Escitalopram [Lexapro] 5 mg PO QDAY #15 tablet
== END 2022-01-07 09:05 | disposition home or self-care (01) | DRG 885 ==
LOC: 3A 13:48 → UNDOADMIN 13:48 → 5A 20:56
PROVIDERS: ADMIT Psychiatry & Neurology Psychiatry; ATTEND Psychiatry & Neurology Psychiatry
DX: F33.3 Major depressive disorder, recurrent, severe with psychotic symptoms (principal); R45.851 Suicidal ideations; E66.2 Morbid (severe) obesity with alveolar hypoventilation; F01.51 Vascular dementia, unspecified severity, with behavioral disturbance; Z68.42 Body mass index [BMI] 45.0-49.9, adult; I10 Essential (primary) hypertension; E03.9 Hypothyroidism, unspecified; E78.5 Hyperlipidemia, unspecified; K21.9 Gastro-esophageal reflux disease without esophagitis; J45.909 Unspecified asthma, uncomplicated; Z71.3 Dietary counseling and surveillance; I67.2 Cerebral atherosclerosis; E78.2 Mixed hyperlipidemia; Z88.8 Allergy status to other drugs, medicaments and biological substances; Z91.041 Radiographic dye allergy status; Z88.2 Allergy status to sulfonamides; Z82.49 Family history of ischemic heart disease and other diseases of the circulatory system
CPT/HCPCS: 36415; 80053; 80061; 83036; 84443; 85025; 94640; 94760; G0378